=== PATIENT | female | born 1975 | race Caucasian/White ===

== ENCOUNTER 2016-05-04 19:22 | Emergency (ER) | payer MEDICAID ==
[~2016-05-04] VITALS: Ht 165.1 cm; Wt 101.0 kg
[~2016-05-04 19:22] MED LIST: ALBU18HF INH; ALPR0.25 PO; AMLO10TA2 PO; B-12 PO; DIVA250T6 PO; DIVA500T17 PO; DOCU-30 PO; HYDR-2440 PO; IMIP25TA3 PO; LORA10TA3 PO; MAGNESIUM PO; MELO-184 PO; MOME220A9 INH; MONT10TA6 PO; MONT10TA9 PO; NORE-96 PO; OMEP-110 PO; OXYC-302 PO; POTA20TA14 PO; RIVA20TA PO; SERT100T PO; SERT50TA PO; SPIR25TA3 PO; TRAZ100T15 PO; VENTOLIN PO; ZOLP-413 PO; ZOLP10TA PO; [UNRECOGNIZED DRUG - REMARK]
[2016-05-04] MEDS ORDERED: KETOROLAC 30 MG/1 ML IM ONE (20:00)
[2016-05-04] MEDS ORDERED: LORA10TA72 PO (20:02)
[2016-05-04] MEDS ORDERED: MONT4GRA PO (20:02)
[2016-05-04 20:24] LABS: HEMOGLOBIN 14.2 g/dL (11.7-16.4)
[2016-05-04 20:35] LABS: BLOOD UREA NITROGEN 8 mg/dL (7-18)
[2016-05-04 20:39] LABS: IS PT STATUS REG ER OR PRE ER? YES
[2016-05-04] MEDS ORDERED: KETOROLAC 30 MG/1 ML ONE (20:39)
[2016-05-04] MEDS ORDERED: KETOROLAC 30 MG/1 ML IVPush ONE (21:00)
[2016-05-04] MEDS ORDERED: OMNIPAQUE 350 MG/ML, 100ML BOTTLE ONE (21:21)
[2016-05-04 21:30] VITALS: BP 141/80
[2016-05-04] MEDS ORDERED: POTASSIUM CHLORIDE 20 MEQ TAB.ER.PRT PO ONE (22:00)
[2016-05-04] MEDS ORDERED: POTASSIUM CHLORIDE 20 MEQ TAB.ER.PRT ONE (22:15)
[2016-05-04] MEDS ORDERED: OXYcodone/APAP 10/325MG TABLET ONE (22:17)
[2016-05-04] MEDS ORDERED: OXYcodone/APAP 10/325MG TABLET PO ONE (22:30)
== END 2016-05-04 22:24 | disposition home or self-care (01) ==
LOC: ED 22:10
DX: R07.1 Chest pain on breathing (principal); F41.1 Generalized anxiety disorder; G43.909 Migraine, unspecified, not intractable, without status migrainosus; F32.9 Major depressive disorder, single episode, unspecified; F43.10 Post-traumatic stress disorder, unspecified; I10 Essential (primary) hypertension; Z90.710 Acquired absence of both cervix and uterus; Z98.51 Tubal ligation status
CPT/HCPCS: 36415; 71275; 80048; 82040; 83880; 84484; 85025; 93005; 96374; 99285; J1885; Q9967

== ENCOUNTER 2016-08-20 20:54 | Emergency (ER) | payer MEDICAID ==
[~2016-08-20] VITALS: Ht 165.1 cm; Wt 105.2 kg
[~2016-08-20 20:54] MED LIST changes: +LORA10TA72 PO; +MONT4GRA PO
[2016-08-20 21:00] VITALS: BP 135/84
[2016-08-20] MEDS ORDERED: SPIR25TA3 PO (21:05)
[2016-08-20] MEDS ORDERED: KETOROLAC 30 MG/1 ML ONE (21:24)
[2016-08-20] MEDS ORDERED: KETOROLAC 30 MG/1 ML IM ONE (21:30)
== END 2016-08-20 22:11 | disposition home or self-care (01) ==
LOC: ED 22:05
DX: S83.92XA Sprain of unspecified site of left knee, initial encounter (principal); X50.9XXA Other and unspecified overexertion or strenuous movements or postures, initial encounter; Y93.89 Activity, other specified; Y99.8 Other external cause status; Y92.009 Unspecified place in unspecified non-institutional (private) residence as the place of occurrence of the external cause
CPT/HCPCS: 29505; 73564; 96372; 99284; J1885

== ENCOUNTER 2016-09-03 18:22 | Emergency (ER) | payer MEDICAID ==
[~2016-09-03] VITALS: Ht 165.1 cm; Wt 103.0 kg
[2016-09-03] MEDS ORDERED: KETOROLAC 30 MG/1 ML ONE (18:59)
[2016-09-03] MEDS ORDERED: METOCLOPRAMIDE 5 MG/ML, 2ML ONE (18:59)
[2016-09-03] MEDS ORDERED: DIPHENHYDRAMINE 50 MG/ML, 1ML IVPush ONE (19:00)
[2016-09-03] MEDS ORDERED: KETOROLAC 30 MG/1 ML IVPush ONE (19:00)
[2016-09-03] MEDS ORDERED: METOCLOPRAMIDE 5 MG/ML, 2ML IVPush ONE (19:00)
[2016-09-03] MEDS ORDERED: ONDANSETRON 2MG/ML, 2ML ONE (19:00)
[2016-09-03] MEDS ORDERED: DIPHENHYDRAMINE 50 MG/ML, 1ML ONE (19:00)
[2016-09-03] MEDS ORDERED: SODIUM CHLORIDE FLUSH 10ML SYR IVF ONE (19:00)
[2016-09-03] MEDS ORDERED: ONDANSETRON 2MG/ML, 2ML IVPush ONE (19:00)
[2016-09-03] MEDS ORDERED: SODIUM CHLORIDE 0.9% 1,000ML IVBOLUS ONE (19:00)
[2016-09-03] MEDS ORDERED: morphine SULFATE 10 MG/ML, 1ML IVPush PRN (20:00)
[2016-09-03 21:14] VITALS: BP 124/83
== END 2016-09-03 21:18 | disposition home or self-care (01) ==
LOC: ED 19:45
DX: G43.009 Migraine without aura, not intractable, without status migrainosus (principal); I10 Essential (primary) hypertension; E66.01 Morbid (severe) obesity due to excess calories; J45.909 Unspecified asthma, uncomplicated; Z87.891 Personal history of nicotine dependence; Z88.0 Allergy status to penicillin; Z90.710 Acquired absence of both cervix and uterus
CPT/HCPCS: 96361; 96374; 96375; 99284; J1200; J1885; J2405; J2765; J7030

== ENCOUNTER 2016-10-11 17:15 | Emergency (ER) | payer MEDICAID ==
[~2016-10-11] VITALS: Ht 165.1 cm; Wt 101.8 kg
[~2016-10-11 17:15] MED LIST changes: +DOCU-131 PO; -DOCU-30 PO; -MELO-184 PO; +MELO15TA24 PO
[2016-10-11] MEDS ORDERED: KETOROLAC 30 MG/1 ML ONE (18:26)
[2016-10-11] MEDS ORDERED: KETOROLAC 30 MG/1 ML IM ONE (18:30)
[2016-10-11 19:27] VITALS: BP 143/89
== END 2016-10-11 19:26 | disposition home or self-care (01) ==
LOC: ED 18:33
DX: G89.29 Other chronic pain (principal); M25.562 Pain in left knee; E66.01 Morbid (severe) obesity due to excess calories; Z68.37 Body mass index [BMI] 37.0-37.9, adult; I10 Essential (primary) hypertension; J45.909 Unspecified asthma, uncomplicated; Z85.828 Personal history of other malignant neoplasm of skin; Z87.891 Personal history of nicotine dependence; Z86.718 Personal history of other venous thrombosis and embolism
CPT/HCPCS: 73564; 96372; 99284; J1885

== ENCOUNTER 2017-01-03 18:56 | Emergency (ER) | payer MEDICAID ==
[~2017-01-03] VITALS: Ht 165.1 cm; Wt 104.0 kg
[2017-01-03] MEDS ORDERED: HYDROcodone/APAP 5/325 TABLET PO ONE (20:00)
[2017-01-03] MEDS ORDERED: HYDROcodone/APAP 5/325 TABLET ONE (20:08)
[2017-01-03 20:23] VITALS: BP 118/81
== END 2017-01-03 20:26 | disposition home or self-care (01) ==
LOC: ED 20:10
DX: S80.02XA Contusion of left knee, initial encounter (principal); S60.212A Contusion of left wrist, initial encounter; I10 Essential (primary) hypertension; F43.10 Post-traumatic stress disorder, unspecified; W18.30XA Fall on same level, unspecified, initial encounter; Y93.89 Activity, other specified; Y92.009 Unspecified place in unspecified non-institutional (private) residence as the place of occurrence of the external cause; Y99.8 Other external cause status
CPT/HCPCS: 99284

== ENCOUNTER 2017-03-03 10:52 | Emergency (ER) | payer MEDICAID ==
[~2017-03-03] VITALS: Ht 165.1 cm; Wt 104.4 kg
[2017-03-03] MEDS ORDERED: KETOROLAC 30 MG/1 ML IM ONE (11:30)
[2017-03-03] MEDS ORDERED: KETOROLAC 30 MG/1 ML ONE (11:45)
[2017-03-03 12:24] VITALS: BP 141/80
== END 2017-03-03 12:27 | disposition home or self-care (01) ==
LOC: ED 11:42
DX: M25.511 Pain in right shoulder (principal); G43.909 Migraine, unspecified, not intractable, without status migrainosus; I10 Essential (primary) hypertension; F32.9 Major depressive disorder, single episode, unspecified; F17.210 Nicotine dependence, cigarettes, uncomplicated; Z86.718 Personal history of other venous thrombosis and embolism
CPT/HCPCS: 73030; 96372; 99284; J1885

== ENCOUNTER 2017-04-22 09:03 | Emergency (ER) | payer MEDICAID ==
[~2017-04-22] VITALS: Ht 165.1 cm; Wt 100.0 kg
[2017-04-22] MEDS ORDERED: KETOROLAC 30 MG/1 ML ONE (09:27)
[2017-04-22] MEDS ORDERED: MAALOX/HYOSCYAMINE/LIDOCAINE 45 ML BTL ONE (09:27)
[2017-04-22] MEDS ORDERED: MAALOX/HYOSCYAMINE/LIDOCAINE 45 ML BTL PO ONE (09:30)
[2017-04-22] MEDS ORDERED: KETOROLAC 30 MG/1 ML IM ONE (09:30)
[2017-04-22 09:40] LABS: ALANINE AMINOTRANSFERASE 17 U/L (12-78); ANION GAP 10 mmol/L (5-15); CALCIUM 7.8 mg/dL (8.5-10.1); CHLORIDE 109 mmol/L (98-107); CREATININE 0.68 mg/dL (0.55-1.02)
[2017-04-22 09:45] LABS: ALKALINE PHOSPHATASE 77 U/L (45-117); BILIRUBIN,TOTAL 0.7 mg/dL (0.2-1.0); TOTAL PROTEIN 6.1 g/dL (6.4-8.2); TROPONIN I < 0.015 ng/mL (0.000-0.045)
[2017-04-22 09:48] LABS: BASOPHILS # (AUTO) 0.02 x10^3/uL (0-0.1); BASOPHILS % (AUTO) 0 % (0-1); EOSINOPHILS # (AUTO) 0.05 x10^3/uL (0-0.4); EOSINOPHILS % (AUTO) 1 % (1-7); LYMPHOCYTES # (AUTO) 1.83 x10^3/uL (1-3.4); LYMPHOCYTES % (AUTO) 33 % (22-44); MD NO; MEAN CORPUSCULAR HEMOGLOBIN 27.9 pg (27.0-34.8); MEAN CORPUSCULAR HGB CONC 33.1 g/dL (32.4-35.8); MEAN CORPUSCULAR VOLUME 84.2 fL (80-100); MEAN PLATELET VOLUME 8.7 fL (7.4-10.4); MONOCYTES # (AUTO) 0.32 x10^3/uL (0.2-0.8); MONOCYTES % (AUTO) 6 % (2-9); NEUTROPHILS % (AUTO) 61 % (42-75); PLATELET COUNT 363 x10^3/uL (130-400); RED BLOOD COUNT 4.92 x10^6/uL (3.82-5.3); RED CELL DISTRIBUTION WIDTH 13.4 % (9.6-15.2)
[2017-04-22 10:09] VITALS: BP 136/85
== END 2017-04-22 10:11 | disposition home or self-care (01) ==
LOC: ED 09:27
DX: R07.2 Precordial pain (principal); I10 Essential (primary) hypertension; G43.909 Migraine, unspecified, not intractable, without status migrainosus; Z87.891 Personal history of nicotine dependence; E66.01 Morbid (severe) obesity due to excess calories
CPT/HCPCS: 36415; 71045; 80053; 83880; 84484; 85025; 93005; 96372; 99285; J1885

== ENCOUNTER 2017-05-08 19:33 | Emergency (ER) | payer MEDICAID ==
[~2017-05-08] VITALS: Ht 165.1 cm; Wt 99.0 kg
[2017-05-08 20:15] LABS: BASOPHILS # (AUTO) 0.04 x10^3/uL (0-0.1); BASOPHILS % (AUTO) 1 % (0-1); EOSINOPHILS # (AUTO) 0.06 x10^3/uL (0-0.4); EOSINOPHILS % (AUTO) 1 % (1-7); LYMPHOCYTES # (AUTO) 2.41 x10^3/uL (1-3.4); LYMPHOCYTES % (AUTO) 33 % (22-44); MD NO; MEAN CORPUSCULAR HEMOGLOBIN 28.3 pg (27.0-34.8); MEAN CORPUSCULAR HGB CONC 33.8 g/dL (32.4-35.8); MEAN CORPUSCULAR VOLUME 83.7 fL (80-100); MEAN PLATELET VOLUME 8.1 fL (7.4-10.4); MONOCYTES % (AUTO) 5 % (2-9); NEUTROPHILS # (AUTO) 4.42 x10^3/uL (1.8-6.8); NEUTROPHILS % (AUTO) 60 % (42-75); PLATELET COUNT 365 x10^3/uL (130-400); RED BLOOD COUNT 5.02 x10^6/uL (3.82-5.3); RED CELL DISTRIBUTION WIDTH 13.8 % (9.6-15.2)
[2017-05-08 20:24] LABS: ALBUMIN 3.2 g/dL (3.4-5.0); ANION GAP 6 mmol/L (5-15); CALCIUM 8.1 mg/dL (8.5-10.1); CHLORIDE 108 mmol/L (98-107); CREATININE 1.04 mg/dL (0.55-1.02)
[2017-05-08 20:28] LABS: TROPONIN I < 0.015 ng/mL (0.000-0.045)
[2017-05-08] MEDS ORDERED: KETOROLAC 30 MG/1 ML ONE (21:05)
[2017-05-08] MEDS ORDERED: KETOROLAC 30 MG/1 ML IVPush ONE (21:30)
[2017-05-08 22:31] VITALS: BP 165/86
== END 2017-05-08 22:33 | disposition home or self-care (01) ==
LOC: ED 21:49
DX: M94.0 Chondrocostal junction syndrome [Tietze] (principal); I10 Essential (primary) hypertension; E66.01 Morbid (severe) obesity due to excess calories; Z88.0 Allergy status to penicillin; M10.9 Gout, unspecified; F43.10 Post-traumatic stress disorder, unspecified; J45.909 Unspecified asthma, uncomplicated; Z86.718 Personal history of other venous thrombosis and embolism; Z85.828 Personal history of other malignant neoplasm of skin
CPT/HCPCS: 36415; 71045; 80048; 82040; 84484; 85025; 93005; 96374; 99285; J1885

== ENCOUNTER 2017-06-02 11:45 | Emergency (ER) | payer MEDICAID ==
[~2017-06-02] VITALS: Ht 165.1 cm; Wt 101.5 kg
[2017-06-02] MEDS ORDERED: OXYcodone/APAP 10/325MG TABLET PO ONE (12:30)
[2017-06-02] MEDS ORDERED: OXYcodone/APAP 10/325MG TABLET ONE (12:50)
[2017-06-02 13:09] VITALS: BP 139/88
== END 2017-06-02 14:56 | disposition home or self-care (01) ==
LOC: ED 13:34
DX: S60.212A Contusion of left wrist, initial encounter (principal); S80.02XA Contusion of left knee, initial encounter; F43.10 Post-traumatic stress disorder, unspecified; I10 Essential (primary) hypertension; J45.909 Unspecified asthma, uncomplicated; E66.01 Morbid (severe) obesity due to excess calories; G43.909 Migraine, unspecified, not intractable, without status migrainosus; W01.0XXA Fall on same level from slipping, tripping and stumbling without subsequent striking against object, initial encounter; Y93.89 Activity, other specified; Y92.89 Other specified places as the place of occurrence of the external cause; Y99.8 Other external cause status; Z90.710 Acquired absence of both cervix and uterus; Z86.718 Personal history of other venous thrombosis and embolism; Z85.828 Personal history of other malignant neoplasm of skin; Z68.37 Body mass index [BMI] 37.0-37.9, adult; Z98.51 Tubal ligation status
CPT/HCPCS: 29260; 29505; 99284

== ENCOUNTER 2017-07-25 21:16 | Emergency (ER) | payer MEDICAID ==
[~2017-07-25] VITALS: Ht 165.1 cm; Wt 100.0 kg
[2017-07-25 21:58] LABS: BASOPHILS # (AUTO) 0.03 x10^3/uL (0-0.1); BASOPHILS % (AUTO) 1 % (0-1); EOSINOPHILS # (AUTO) 0.14 x10^3/uL (0-0.4); EOSINOPHILS % (AUTO) 2 % (1-7); LYMPHOCYTES # (AUTO) 2.19 x10^3/uL (1-3.4); LYMPHOCYTES % (AUTO) 33 % (22-44); MD NO; MEAN CORPUSCULAR HGB CONC 34.3 g/dL (32.4-35.8); MEAN CORPUSCULAR VOLUME 84.7 fL (80-100); MONOCYTES # (AUTO) 0.42 x10^3/uL (0.2-0.8); MONOCYTES % (AUTO) 6 % (2-9); NEUTROPHILS # (AUTO) 3.86 x10^3/uL (1.8-6.8); NEUTROPHILS % (AUTO) 58 % (42-75); PLATELET COUNT 385 x10^3/uL (130-400); RED BLOOD COUNT 4.68 x10^6/uL (3.82-5.3)
[2017-07-25] MEDS ORDERED: DIPHENHYDRAMINE 50 MG/ML, 1ML ONE (21:59)
[2017-07-25] MEDS ORDERED: MAALOX/HYOSCYAMINE/LIDOCAINE 45 ML BTL ONE (21:59)
[2017-07-25] MEDS ORDERED: FAMOTIDINE 20 MG/2 ML ONE (21:59)
[2017-07-25] MEDS ORDERED: METOCLOPRAMIDE 5 MG/ML, 2ML ONE (21:59)
[2017-07-25] MEDS ORDERED: MORPHINE SULFATE 4 MG/ML, 1ML IVPush PRN (22:00)
[2017-07-25] MEDS ORDERED: FAMOTIDINE 20 MG/2 ML IVP ONE (22:00)
[2017-07-25] MEDS ORDERED: METOCLOPRAMIDE 5 MG/ML, 2ML IVPush ONE (22:00)
[2017-07-25] MEDS ORDERED: SODIUM CHLORIDE FLUSH 10ML SYR IVF ONE (22:00)
[2017-07-25] MEDS ORDERED: MAALOX/HYOSCYAMINE/LIDOCAINE 45 ML BTL PO ONE (22:00)
[2017-07-25] MEDS ORDERED: DIPHENHYDRAMINE 50 MG/ML, 1ML IVPush ONE (22:00)
[2017-07-25] MEDS ORDERED: SODIUM CHLORIDE 0.9% 1,000ML IVBOLUS ONE (22:00)
[2017-07-25 22:10] LABS: ALANINE AMINOTRANSFERASE 30 U/L (12-78); ANION GAP 8 mmol/L (5-15); CALCIUM 8.2 mg/dL (8.5-10.1); CHLORIDE 107 mmol/L (98-107); CREATININE 0.79 mg/dL (0.55-1.02)
[2017-07-25 22:14] LABS: ALKALINE PHOSPHATASE 79 U/L (45-117); BILIRUBIN,TOTAL 0.2 mg/dL (0.2-1.0); TOTAL PROTEIN 6.4 g/dL (6.4-8.2)
[2017-07-25 22:46] LABS: MICROSCOPIC NOT IND
[2017-07-25 22:49] LABS: CULTURE INDICATED? NO
[2017-07-25 22:57] VITALS: BP 160/80
== END 2017-07-26 00:03 | disposition home or self-care (01) ==
LOC: ED 23:03
DX: R10.13 Epigastric pain (principal); R19.7 Diarrhea, unspecified; R11.10 Vomiting, unspecified; I10 Essential (primary) hypertension; Z87.891 Personal history of nicotine dependence
CPT/HCPCS: 36415; 76700; 80053; 81003; 83690; 84703; 85025; 96361; 96374; 96375; 99285; J1200; J2765; J7030; S0028

== ENCOUNTER 2017-09-11 19:58 | Emergency (ER) | payer MEDICAID ==
[~2017-09-11] VITALS: Ht 167.6 cm; Wt 100.0 kg
[~2017-09-11 19:58] MED LIST changes: +DIVA-59 PO; -DIVA250T6 PO; -SPIR25TA3 PO; +SPIR25TA5 PO; +TRAZ-137 PO; -TRAZ100T15 PO
[2017-09-11 20:08] VITALS: BP 145/86
[2017-09-11] MEDS ORDERED: ASPIRIN 81 MG TABLET CHEW PO ONE (20:30)
[2017-09-11] MEDS ORDERED: KETOROLAC 30 MG/1 ML ONE (20:30)
[2017-09-11] MEDS ORDERED: KETOROLAC 60 MG/2 ML IVPush ONE (20:30)
[2017-09-11] MEDS ORDERED: ASPIRIN 81 MG TABLET CHEW ONE (20:30)
[2017-09-11 20:54] LABS: BASOPHILS # (AUTO) 0.02 x10^3/uL (0-0.1); BASOPHILS % (AUTO) 0 % (0-1); EOSINOPHILS % (AUTO) 1 % (1-7); LYMPHOCYTES # (AUTO) 2.46 x10^3/uL (1-3.4); LYMPHOCYTES % (AUTO) 26 % (22-44); MD NO; MEAN CORPUSCULAR HGB CONC 33.4 g/dL (32.4-35.8); MEAN CORPUSCULAR VOLUME 86.7 fL (80-100); MEAN PLATELET VOLUME 8.5 fL (7.4-10.4); MONOCYTES # (AUTO) 0.48 x10^3/uL (0.2-0.8); MONOCYTES % (AUTO) 5 % (2-9); NEUTROPHILS % (AUTO) 67 % (42-75); PLATELET COUNT 342 x10^3/uL (130-400); RED BLOOD COUNT 4.63 x10^6/uL (3.82-5.3); RED CELL DISTRIBUTION WIDTH 12.6 % (9.6-15.2)
[2017-09-11 21:03] LABS: ALANINE AMINOTRANSFERASE 44 U/L (12-78); ALBUMIN 3.3 g/dL (3.4-5.0); ANION GAP 10 mmol/L (5-15); CALCIUM 8.3 mg/dL (8.5-10.1); CHLORIDE 107 mmol/L (98-107); CREATININE 0.87 mg/dL (0.55-1.02)
[2017-09-11 21:08] LABS: ALKALINE PHOSPHATASE 86 U/L (45-117); BILIRUBIN,TOTAL 0.3 mg/dL (0.2-1.0); TOTAL PROTEIN 6.8 g/dL (6.4-8.2); TROPONIN I < 0.015 ng/mL (0.000-0.045)
[2017-09-11] MEDS ORDERED: ACETAMINOPHEN 500 MG TABLET ONE (21:39)
[2017-09-11] MEDS ORDERED: ACETAMINOPHEN 500 MG TABLET PO ONE (22:00)
== END 2017-09-11 22:38 | disposition home or self-care (01) ==
LOC: ED 21:16
DX: R07.89 Other chest pain (principal); M94.0 Chondrocostal junction syndrome [Tietze]; J45.909 Unspecified asthma, uncomplicated; Z87.891 Personal history of nicotine dependence
CPT/HCPCS: 36415; 71046; 80053; 84484; 84703; 85025; 93005; 96374; 99285; J1885

== ENCOUNTER 2017-12-02 18:53 | Emergency (ER) | payer MEDICAID ==
[~2017-12-02] VITALS: Ht 165.1 cm; Wt 100.0 kg
[~2017-12-02 18:53] MED LIST changes: -AMLO10TA2 PO; +AMLO10TA6 PO
[2017-12-02] MEDS ORDERED: SODIUM CHLORIDE 0.9% 1,000 ML IV ONE (19:13)
[2017-12-02] MEDS ORDERED: ONDANSETRON 2MG/ML, 2ML ONE (19:23)
[2017-12-02] MEDS ORDERED: HYDROmorphone 2 MG/ML, 1ML ONE (19:24)
[2017-12-02] MEDS ORDERED: SODIUM CHLORIDE 0.9% 1,000ML IVBOLUS ONE (19:30)
[2017-12-02] MEDS ORDERED: SODIUM CHLORIDE FLUSH 10ML SYR IVF ONE (19:30)
[2017-12-02] MEDS ORDERED: ONDANSETRON 2MG/ML, 2ML IVPush ONE (19:30)
[2017-12-02] MEDS ORDERED: HYDROmorphone 2 MG/ML, 1ML IVPush PRN (19:30)
[2017-12-02 19:37] LABS: BASOPHILS # (AUTO) 0.02 x10^3/uL (0-0.1); BASOPHILS % (AUTO) 0 % (0-1); EOSINOPHILS # (AUTO) 0.06 x10^3/uL (0-0.4); EOSINOPHILS % (AUTO) 1 % (1-7); LYMPHOCYTES % (AUTO) 21 % (22-44); MD NO; MEAN CORPUSCULAR HEMOGLOBIN 28.8 pg (27.0-34.8); MEAN CORPUSCULAR HGB CONC 33.7 g/dL (32.4-35.8); MEAN CORPUSCULAR VOLUME 85.3 fL (80-100); MEAN PLATELET VOLUME 8.2 fL (7.4-10.4); MONOCYTES # (AUTO) 0.43 x10^3/uL (0.2-0.8); MONOCYTES % (AUTO) 8 % (2-9); NEUTROPHILS # (AUTO) 3.75 x10^3/uL (1.8-6.8); NEUTROPHILS % (AUTO) 70 % (42-75); PLATELET COUNT 390 x10^3/uL (130-400); RED BLOOD COUNT 5.18 x10^6/uL (3.82-5.3); RED CELL DISTRIBUTION WIDTH 12.2 % (9.6-15.2)
[2017-12-02 19:44] LABS: ALBUMIN 3.4 g/dL (3.4-5.0); ANION GAP 8 mmol/L (5-15); CALCIUM 8.5 mg/dL (8.5-10.1); CHLORIDE 109 mmol/L (98-107); PROTHROMBIN TIME 10.3 Seconds (9.6-11.5)
[2017-12-02 19:49] LABS: ALANINE AMINOTRANSFERASE 43 U/L (12-78); ALKALINE PHOSPHATASE 104 U/L (45-117); BILIRUBIN,TOTAL 0.5 mg/dL (0.2-1.0); CREATININE 0.85 mg/dL (0.55-1.02); TOTAL PROTEIN 7.4 g/dL (6.4-8.2); TROPONIN I < 0.015 ng/mL (0.000-0.045)
[2017-12-02] MEDS ORDERED: OMNIPAQUE 350 MG/ML, 100ML BOTTLE ONE (20:31)
[2017-12-02 21:16] VITALS: BP 122/80
== END 2017-12-02 21:22 | disposition home or self-care (01) ==
LOC: ED 20:29
DX: R07.89 Other chest pain (principal); I10 Essential (primary) hypertension; G43.909 Migraine, unspecified, not intractable, without status migrainosus; J45.909 Unspecified asthma, uncomplicated; Z88.0 Allergy status to penicillin
CPT/HCPCS: 36415; 71046; 71275; 80053; 83880; 84484; 85025; 85610; 85730; 93005; 96361; 96374; 96375; 99285; J1170; J2405; J7030; Q9967

== ENCOUNTER 2018-02-17 13:44 | Emergency (ER) | payer SELFPAY ==
[~2018-02-17] VITALS: Ht 167.6 cm; Wt 100.0 kg
--- NOTE | 2018-02-17 14:08 | NUR ---
BIB [facility]. C/O CP across chest starting at 1300. EKG done. Placed on NIBP, pulse ox and monitoring tech. Family at bedside. Will continue to monitor.
[2018-02-17] MEDS ORDERED: KETOROLAC 30 MG/1 ML ONE (14:13)
--- NOTE | 2018-02-17 14:19 | NUR ---
Toradol admin. No other needs.
[2018-02-17] MEDS ORDERED: KETOROLAC 30 MG/1 ML IVPush ONE (14:30)
[2018-02-17 15:24] VITALS: BP 128/81
--- NOTE | 2018-02-17 15:24 | NUR ---
Patient/Caregiver given discharge instructions and they have confirmed that they understand the instructions. Patient ambulatory with steady gait.
== END 2018-02-17 15:26 | disposition home or self-care (01) ==
LOC: ED 15:25
DX: R07.89 Other chest pain (principal); I10 Essential (primary) hypertension; F41.1 Generalized anxiety disorder; F32.9 Major depressive disorder, single episode, unspecified; J45.909 Unspecified asthma, uncomplicated; F43.10 Post-traumatic stress disorder, unspecified; E66.01 Morbid (severe) obesity due to excess calories; Z88.0 Allergy status to penicillin; Z88.5 Allergy status to narcotic agent; Z68.35 Body mass index [BMI] 35.0-35.9, adult; Z98.890 Other specified postprocedural states; Z90.710 Acquired absence of both cervix and uterus; Z98.51 Tubal ligation status
CPT/HCPCS: 71046; 93005; 96374; 99283; J1885

== ENCOUNTER 2018-03-28 20:49 | Emergency (ER) | payer MEDICAID ==
[~2018-03-28] VITALS: Ht 165.1 cm; Wt 103.0 kg
[~2018-03-28 20:49] MED LIST changes: -AMLO10TA6 PO; +AMLO10TA8 PO; +LORA-247 PO; -LORA10TA3 PO
[2018-03-28] MEDS ORDERED: TRAM50TA2 PO (20:58)
[2018-03-28] MEDS ORDERED: KETOROLAC 30 MG/1 ML IVPush ONE (21:30)
[2018-03-28] MEDS ORDERED: KETOROLAC 30 MG/1 ML ONE (21:35)
[2018-03-28 21:41] LABS: BASOPHILS # (AUTO) 0.02 x10^3/uL (0-0.1); BASOPHILS % (AUTO) 0 % (0-1); EOSINOPHILS # (AUTO) 0.13 x10^3/uL (0-0.4); EOSINOPHILS % (AUTO) 2 % (1-7); LYMPHOCYTES # (AUTO) 2.25 x10^3/uL (1-3.4); LYMPHOCYTES % (AUTO) 29 % (22-44); MD NO; MEAN CORPUSCULAR HEMOGLOBIN 28.6 pg (27.0-34.8); MEAN CORPUSCULAR HGB CONC 33.7 g/dL (32.4-35.8); MEAN CORPUSCULAR VOLUME 84.9 fL (80-100); MEAN PLATELET VOLUME 7.9 fL (7.4-10.4); MONOCYTES # (AUTO) 0.38 x10^3/uL (0.2-0.8); MONOCYTES % (AUTO) 5 % (2-9); NEUTROPHILS # (AUTO) 4.88 x10^3/uL (1.8-6.8); NEUTROPHILS % (AUTO) 64 % (42-75); PLATELET COUNT 421 x10^3/uL (130-400); RED BLOOD COUNT 4.67 x10^6/uL (3.82-5.3)
--- NOTE | 2018-03-28 21:41 | NUR ---
PT RESTING ON GURNEY WATCHING TV. AT BEDSIDE. PT MEDICATED PER EMAR AND PT AWARE PA IS AWAITING RESULTS. VSS AND WILL CONT TO MONITOR.
[2018-03-28 21:54] LABS: ALANINE AMINOTRANSFERASE 23 U/L (12-78); ALBUMIN 3.2 g/dL (3.4-5.0); ANION GAP 7 mmol/L (5-15); CHLORIDE 108 mmol/L (98-107); CREATININE 1.08 mg/dL (0.55-1.02)
[2018-03-28 21:59] LABS: ALKALINE PHOSPHATASE 95 U/L (45-117); BILIRUBIN,TOTAL 0.5 mg/dL (0.2-1.0); TROPONIN I < 0.015 ng/mL (0.000-0.045)
[2018-03-29 00:10] VITALS: BP 120/75
== END 2018-03-29 00:13 | disposition home or self-care (01) ==
LOC: ED 23:55
DX: R07.89 Other chest pain (principal); J45.909 Unspecified asthma, uncomplicated; G43.909 Migraine, unspecified, not intractable, without status migrainosus; I10 Essential (primary) hypertension
CPT/HCPCS: 36415; 71045; 80053; 84484; 85025; 93005; 96374; 99284; J1885

== ENCOUNTER 2018-04-07 20:12 | Emergency (ER) | payer MEDICAID ==
[~2018-04-07] VITALS: Ht 165.1 cm; Wt 102.0 kg
[~2018-04-07 20:12] MED LIST changes: +TRAM50TA2 PO
[2018-04-07] MEDS ORDERED: KETOROLAC 30 MG/1 ML ONE (20:29)
[2018-04-07] MEDS ORDERED: KETOROLAC 30 MG/1 ML IM ONE (20:30)
--- NOTE | 2018-04-07 20:35 | NUR ---
Bedside SBAR report received from Alisa childs RN. EDT at bedside for EKG.
--- NOTE | 2018-04-07 20:42 | NUR ---
EKG complete. Pt in imaging at this time.
[2018-04-07 21:14] LABS: BASOPHILS # (AUTO) 0.03 x10^3/uL (0-0.1); BASOPHILS % (AUTO) 0 % (0-1); EOSINOPHILS # (AUTO) 0.08 x10^3/uL (0-0.4); EOSINOPHILS % (AUTO) 1 % (1-7); LYMPHOCYTES # (AUTO) 1.86 x10^3/uL (1-3.4); LYMPHOCYTES % (AUTO) 26 % (22-44); MD NO; MEAN CORPUSCULAR HEMOGLOBIN 28.5 pg (27.0-34.8); MEAN CORPUSCULAR VOLUME 83.8 fL (80-100); MEAN PLATELET VOLUME 8.4 fL (7.4-10.4); MONOCYTES % (AUTO) 6 % (2-9); NEUTROPHILS # (AUTO) 4.85 x10^3/uL (1.8-6.8); NEUTROPHILS % (AUTO) 67 % (42-75); PLATELET COUNT 330 x10^3/uL (130-400); RED BLOOD COUNT 4.68 x10^6/uL (3.82-5.3); RED CELL DISTRIBUTION WIDTH 12.9 % (9.6-15.2)
[2018-04-07 21:17] LABS: ALANINE AMINOTRANSFERASE 33 U/L (12-78); ALBUMIN 3.2 g/dL (3.4-5.0); ANION GAP 5 mmol/L (5-15); CALCIUM 8.1 mg/dL (8.5-10.1); CHLORIDE 106 mmol/L (98-107); CREATININE 0.86 mg/dL (0.55-1.02)
[2018-04-07 21:21] LABS: ALKALINE PHOSPHATASE 90 U/L (45-117); BILIRUBIN,TOTAL 0.5 mg/dL (0.2-1.0); TOTAL PROTEIN 6.5 g/dL (6.4-8.2); TROPONIN I < 0.015 ng/mL (0.000-0.045)
[2018-04-07] MEDS ORDERED: DEXAMETHASONE 4 MG TABLET PO ONE (21:30)
[2018-04-07] MEDS ORDERED: DEXAMETHASONE 4 MG TABLET ONE (21:38)
--- NOTE | 2018-04-07 21:40 | NUR ---
RN in to medicate pt, per APR. Medication explained to pt and pt states that she has a little bit of a sore throat because she was just sleeping. Pt then asked if her pain is better as she was sleeping, pt states "No, it's still there."
--- NOTE | 2018-04-07 21:42 | NUR ---
Pt medicated per MAR.
[2018-04-07 21:43] VITALS: BP 137/78
== END 2018-04-07 22:22 | disposition home or self-care (01) ==
LOC: ED 21:55
DX: M94.0 Chondrocostal junction syndrome [Tietze] (principal); I10 Essential (primary) hypertension
CPT/HCPCS: 36415; 71046; 80053; 84484; 85025; 93005; 96372; 99284; J1885

== ENCOUNTER 2018-04-08 15:55 | Emergency (ER) | payer MEDICAID ==
[~2018-04-08] VITALS: Ht 165.1 cm; Wt 100.0 kg
[2018-04-08] MEDS ORDERED: KETOROLAC 30 MG/1 ML IVPush ONE (17:00)
[2018-04-08] MEDS ORDERED: KETOROLAC 30 MG/1 ML ONE (17:08)
[2018-04-08 17:16] LABS: MEAN CORPUSCULAR HEMOGLOBIN 28.4 pg (27.0-34.8); MEAN CORPUSCULAR HGB CONC 33.3 g/dL (32.4-35.8); MEAN CORPUSCULAR VOLUME 85.5 fL (80-100); MEAN PLATELET VOLUME 8.2 fL (7.4-10.4); PLATELET COUNT 397 x10^3/uL (130-400); RED BLOOD COUNT 4.77 x10^6/uL (3.82-5.3); RED CELL DISTRIBUTION WIDTH 13.1 % (9.6-15.2)
--- NOTE | 2018-04-08 17:17 | NUR ---
REPORT OF PT FROM EVERT HENRY. PT ATTACHED TO VS MACHINES AND FINISH MILL OPERATOR. VSS AT THIS TIME. PT MEDICATED FOR PAIN PER EMAR.
[2018-04-08 17:22] LABS: ANION GAP 8 mmol/L (5-15); CALCIUM 8.3 mg/dL (8.5-10.1); CHLORIDE 111 mmol/L (98-107); CREATININE 0.83 mg/dL (0.55-1.02)
[2018-04-08 17:26] LABS: TROPONIN I < 0.015 ng/mL (0.000-0.045)
[2018-04-08 17:42] LABS: BASOPHILS # (AUTO) 0.03 x10^3/uL (0-0.1); BASOPHILS % (AUTO) 0 % (0-1); EOSINOPHILS % (AUTO) 0 % (1-7); LYMPHOCYTES # (AUTO) 1.19 x10^3/uL (1-3.4); LYMPHOCYTES % (AUTO) 7 % (22-44); MD SCAN; MONOCYTES # (AUTO) 0.58 x10^3/uL (0.2-0.8); MONOCYTES % (AUTO) 4 % (2-9); NEUTROPHILS # (AUTO) 14.75 x10^3/uL (1.8-6.8); NEUTROPHILS % (AUTO) 89 % (42-75)
[2018-04-08] MEDS ORDERED: HYDROcodone/APAP 5/325 TABLET PO STA (18:03)
[2018-04-08] MEDS ORDERED: HYDROcodone/APAP 5/325 TABLET ONE (18:47)
--- NOTE | 2018-04-08 19:06 | NUR ---
PT D/C WITH D/C SUMMARY AND SCRIPTS. IV DC WITH TIP INTACT. PT DENIES ANY OTHER NEEDS PERTAINING TO THIS VISIT. PT AMBULATED WITH STEADY GAIT TO D/C DESK FOR D/C HOME WITH FRIEND.
[2018-04-08 19:07] VITALS: BP 134/77
== END 2018-04-08 19:09 | disposition home or self-care (01) ==
LOC: ED 16:12
DX: R07.2 Precordial pain (principal); I10 Essential (primary) hypertension; F32.9 Major depressive disorder, single episode, unspecified; J45.909 Unspecified asthma, uncomplicated; Z98.890 Other specified postprocedural states; Z90.710 Acquired absence of both cervix and uterus; Z98.51 Tubal ligation status; Z86.718 Personal history of other venous thrombosis and embolism
CPT/HCPCS: 36415; 80048; 82040; 84484; 85025; 93005; 96374; 99284; J1885

== ENCOUNTER 2018-05-03 21:00 | Emergency (ER) | payer MEDICAID ==
[~2018-05-03] VITALS: Ht 165.1 cm; Wt 100.0 kg
[2018-05-03 21:03] VITALS: BP 144/87
[2018-05-03] MEDS ORDERED: KETOROLAC 30 MG/1 ML IM ONE (21:30)
[2018-05-03] MEDS ORDERED: KETOROLAC 30 MG/1 ML ONE (21:40)
--- NOTE | 2018-05-03 22:10 | NUR ---
ELISABETH RN, PT MEDICATED BY PRIMARY RN, PT STATES STILL IN PAIN, WILL ALERT , EDUCATED PT THAT MED WILL TAKE A BIT TO KICK IN AND WILL CHECK BACK WITH HER. CALL LIGHT IN BED. SIDE RAILS UP.
--- NOTE | 2018-05-03 22:50 | NUR ---
Patient/Caregiver given discharge instructions and they have confirmed that they understand the instructions. Patient ambulatory with steady gait.
== END 2018-05-03 23:09 | disposition home or self-care (01) ==
LOC: ED 22:04
DX: M94.0 Chondrocostal junction syndrome [Tietze] (principal); I10 Essential (primary) hypertension; F41.1 Generalized anxiety disorder; J45.909 Unspecified asthma, uncomplicated; F32.9 Major depressive disorder, single episode, unspecified; E66.9 Obesity, unspecified; Z68.36 Body mass index [BMI] 36.0-36.9, adult; Z86.718 Personal history of other venous thrombosis and embolism
CPT/HCPCS: 96372; 99283; J1885; J7512

== ENCOUNTER 2018-05-16 17:46 | Emergency (ER) | payer MEDICAID ==
[~2018-05-16] VITALS: Ht 165.1 cm; Wt 225.0 kg
[2018-05-16] MEDS ORDERED: ACETAMINOPHEN 500 MG TABLET ONE (18:24)
[2018-05-16] MEDS ORDERED: KETOROLAC 30 MG/1 ML ONE (18:24)
[2018-05-16] MEDS ORDERED: KETOROLAC 30 MG/1 ML IVPush ONE (18:30)
[2018-05-16] MEDS ORDERED: ACETAMINOPHEN 500 MG TABLET PO ONE (18:30)
--- NOTE | 2018-05-16 18:40 | NUR ---
PT MEDICATED PER APR. 5 RIGHTS VERIFIED PRIOR. 3 P'S ADDRESSED.
[2018-05-16] MEDS ORDERED: HYDROmorphone 1 MG/ML, 1ML VIAL ONE (19:18)
--- NOTE | 2018-05-16 19:22 | NUR ---
PT MEDICATED FOR INCREASED PAIN. POC UPDATED. PT TO BE D/C.
[2018-05-16] MEDS ORDERED: HYDROmorphone 1 MG/ML, 1ML AMP IV ONE (19:30)
--- NOTE | 2018-05-16 19:30 | NUR ---
PT MEDICATED PER APR. 5 RIGHTS VERIFIED PRIOR. 3 P'S ADDRESSED.
[2018-05-16 19:35] VITALS: BP 123/78
--- NOTE | 2018-05-16 20:05 | NUR ---
PT STATES IMPROVED PAIN. PT GIVEN D/C PAPERWORK. PT VERBALIZED UNDERSTANDING. PT AMBULATED OUT OF DEPARTMENT WITH STEADY GAIT.
== END 2018-05-16 20:11 | disposition home or self-care (01) ==
LOC: ED 19:54
DX: R07.89 Other chest pain (principal); I10 Essential (primary) hypertension; G43.909 Migraine, unspecified, not intractable, without status migrainosus; J45.909 Unspecified asthma, uncomplicated; E66.01 Morbid (severe) obesity due to excess calories; Z68.45 Body mass index [BMI] 70 or greater, adult; Z87.891 Personal history of nicotine dependence; Z88.0 Allergy status to penicillin
CPT/HCPCS: 71045; 93005; 96374; 96375; 99283; J1170; J1885

== ENCOUNTER 2018-05-26 20:04 | Emergency (ER) | payer MEDICAID ==
[~2018-05-26] VITALS: Ht 165.1 cm; Wt 102.0 kg
[2018-05-26] MEDS ORDERED: CELE50CA PO (20:24)
--- NOTE | 2018-05-26 20:27 | NUR ---
PT CRYING STATES "I HAVE AUTOIMMUNE DISEASE AND MY MEDICATIONS ARE NOT WORKING. TAKES TRAMADOL AND CELEBREX." PHYSICIAN AT BEDSIDE.
[2018-05-26] MEDS ORDERED: LORazepam 2 MG/ML, 1ML IVPush ONE (20:30)
[2018-05-26] MEDS ORDERED: LORazepam 2 MG/ML, 1ML ONE (20:35)
[2018-05-26] MEDS ORDERED: KETOROLAC 30 MG/1 ML ONE (21:16)
[2018-05-26] MEDS ORDERED: KETOROLAC 30 MG/1 ML IVPush ONE (21:30)
--- NOTE | 2018-05-26 22:07 | NUR ---
PT STATES "PAIN IS BACK BAD IT WAS WHEN I CALLED [facility]." PHYSICIAN NOTIFIED.
[2018-05-26] MEDS ORDERED: ZIPRASIDONE 20 MG INJ IM ONE ×2 (22:20→22:30)
[2018-05-26 23:02] VITALS: BP 143/72
== END 2018-05-26 23:05 | disposition home or self-care (01) ==
LOC: ED 20:35
DX: R07.89 Other chest pain (principal); I10 Essential (primary) hypertension; F41.1 Generalized anxiety disorder; F32.9 Major depressive disorder, single episode, unspecified; F43.10 Post-traumatic stress disorder, unspecified; M10.9 Gout, unspecified; J45.909 Unspecified asthma, uncomplicated; Z86.718 Personal history of other venous thrombosis and embolism; Z87.891 Personal history of nicotine dependence; Z90.721 Acquired absence of ovaries, unilateral; Z85.828 Personal history of other malignant neoplasm of skin
CPT/HCPCS: 93005; 96372; 96374; 96375; 99283; J1885; J2060; J3486

== ENCOUNTER 2018-06-05 21:17 | Emergency (ER) | payer MEDICAID ==
[~2018-06-05 21:17] MED LIST changes: +CELE50CA PO
--- NOTE | 2018-06-05 21:29 | NUR ---
BIB [facility] FOR PAIN TO CHEST. PT HAS AUTOIMMUNE COSTROCHRONDRITIS AND STATES "SHE IS HAVING A FLARE UP TONIGHT." 18GAUGE STARTED TO RIGHT AC PER [facility] AND ZOFRAN 4MG IVP GIVEN. EKG DONE UPON ARRIVAL. PHYSICIAN AT BEDSIDE.
[2018-06-05] MEDS ORDERED: KETOROLAC 30 MG/1 ML IVPush ONE (21:30)
[2018-06-05] MEDS ORDERED: KETOROLAC 30 MG/1 ML ONE (21:32)
--- NOTE | 2018-06-05 21:36 | NUR ---
PT MEDICATED FOR PAIN PER EMAR WITH TORADOL 30MG IVP
[2018-06-05 22:15] VITALS: BP 123/74
== END 2018-06-05 22:27 | disposition home or self-care (01) ==
LOC: ED 21:56
DX: R07.89 Other chest pain (principal); Z90.710 Acquired absence of both cervix and uterus; I10 Essential (primary) hypertension; Z86.718 Personal history of other venous thrombosis and embolism; F43.10 Post-traumatic stress disorder, unspecified; J45.909 Unspecified asthma, uncomplicated
CPT/HCPCS: 93005; 96374; 99283; J1885

== ENCOUNTER 2018-09-10 13:25 | Emergency (ER) | payer MEDICAID ==
[~2018-09-10] VITALS: Ht 160 cm; Wt 97.7 kg
[2018-09-10 13:36] VITALS: BP 122/86
== END 2018-09-10 15:56 | disposition home or self-care (01) ==
LOC: ED 15:25
DX: S83.412A Sprain of medial collateral ligament of left knee, initial encounter (principal); M25.572 Pain in left ankle and joints of left foot; M79.675 Pain in left toe(s); I10 Essential (primary) hypertension; F43.10 Post-traumatic stress disorder, unspecified; F32.9 Major depressive disorder, single episode, unspecified; Z86.718 Personal history of other venous thrombosis and embolism; Z90.710 Acquired absence of both cervix and uterus; W19.XXXA Unspecified fall, initial encounter; Y93.89 Activity, other specified; Y92.009 Unspecified place in unspecified non-institutional (private) residence as the place of occurrence of the external cause; Y99.8 Other external cause status
CPT/HCPCS: 99283

== ENCOUNTER 2018-09-28 19:06 | Emergency (ER) | payer MEDICAID ==
[~2018-09-28] VITALS: Ht 160 cm; Wt 102.5 kg
[2018-09-28 19:32] VITALS: BP 173/103
== END 2018-09-28 22:57 | disposition home or self-care (01) ==
LOC: ED 22:45
DX: G89.29 Other chronic pain (principal); M54.5 Low back pain; J45.909 Unspecified asthma, uncomplicated; I10 Essential (primary) hypertension; F41.1 Generalized anxiety disorder; F43.10 Post-traumatic stress disorder, unspecified; F32.9 Major depressive disorder, single episode, unspecified
CPT/HCPCS: 81003; 96372; 99283; J1170

== ENCOUNTER 2018-12-07 18:47 | Emergency (ER) | payer MEDICAID ==
[~2018-12-07] VITALS: Ht 160 cm; Wt 104.2 kg
[2018-12-07 18:57] VITALS: BP 150/97
--- NOTE | 2018-12-07 19:35 | NUR ---
pt to room from lobby
[2018-12-07] MEDS ORDERED: OXYcodone/APAP 5/325MG TABLET PO ONE (20:00)
[2018-12-07] MEDS ORDERED: KETOROLAC 30 MG/1 ML IM ONE (20:00)
[2018-12-07] MEDS ORDERED: KETOROLAC 30 MG/1 ML ONE (20:21)
[2018-12-07] MEDS ORDERED: OXYcodone/APAP 5/325MG TABLET ONE (20:21)
[2018-12-07] MEDS ORDERED: ZOLP-413 PO (20:36)
[2018-12-07] MEDS ORDERED: DULO60CA56 PO (20:36)
[2018-12-07] MEDS ORDERED: ROPI1TAB2 PO (20:36)
[2018-12-07] MEDS ORDERED: PREG50CA58 PO (20:36)
--- NOTE | 2018-12-07 20:44 | NUR ---
THUMB SPICA SPLINT AND ARM SLING APPLIED PER PAIRING MACHINE OPERATOR. PERCOCENT & TORADOL GIVEN PER EMAR.
== END 2018-12-07 21:43 | disposition home or self-care (01) ==
LOC: ED 21:15
DX: S43.81XA Sprain of other specified parts of right shoulder girdle, initial encounter (principal); M10.9 Gout, unspecified; J45.909 Unspecified asthma, uncomplicated; F32.9 Major depressive disorder, single episode, unspecified; F43.10 Post-traumatic stress disorder, unspecified; Z90.710 Acquired absence of both cervix and uterus; Z87.891 Personal history of nicotine dependence; Z12.83 Encounter for screening for malignant neoplasm of skin; X58.XXXA Exposure to other specified factors, initial encounter; Y93.89 Activity, other specified; Y92.89 Other specified places as the place of occurrence of the external cause; Y99.8 Other external cause status
CPT/HCPCS: 29125; 73110; 96372; 99283; J1885

== ENCOUNTER 2018-12-23 04:06 | Emergency (ER) | payer MEDICAID ==
[~2018-12-23] VITALS: Ht 162.6 cm; Wt 98.0 kg
[~2018-12-23 04:06] MED LIST changes: +DULO60CA56 PO; +PREG50CA58 PO; +ROPI1TAB2 PO
--- NOTE | 2018-12-23 04:25 | NUR ---
DURING INTERVIEW PROCESS, THE MINOR IN THE ROOM-PATIENT'S CHILD STATED THAT THE COULD NOT MISS SCHOOL AGAIN BECAUSE OF AN ER VISIT. THE PATIENT STATED "CAN WE JUST NOT TALK ABOUT THIS RIGHT NOW, I'M IN TOO MUCH PAIN". THE PATIENT THEN STATED THAT HE UNDERSTOOD SHE WAS IN PAIN, BUT HE REALIZED HOW LONG THE ER VISIT WOULD TAKE AND COULD NOT MISS SCHOOL AGAIN. THE PATIENT RESPONDED WTIH "I CAN NOT DEAL WITH THIS RIGHT NOW". THE PATIENT'S SON ATTEMPTED TO CONTACT FATHER REGARDING SAP SENIOR DEVELOPER FOR SCHOOL. THE INDIVIDUAL WILL BE PROVIDED WITH TAXI VOUCHER TO GET TO SCHOOL IN ORDER TO PREVENT FURTHER ABSENCES. THE PATIENT MADE A STATEMENT THAT HE HAS MISSED SCHOOL ALREADY THIS WEEK. REPORT FROM EMS THAT THE PATIENT WAS SEEN AT [facility] EARLIER THIS WEEK FOR THE SAME COMPLAINT. THE PATIENT'S SON CAME WITH PATIENT ON EMS RIDE TO THE HOSPITAL.
[2018-12-23 04:42] LABS: BASOPHILS # (AUTO) 0.03 x10^3/uL (0-0.1); BASOPHILS % (AUTO) 1 % (0-1); EOSINOPHILS # (AUTO) 0.18 x10^3/uL (0-0.4); EOSINOPHILS % (AUTO) 3 % (1-7); LYMPHOCYTES % (AUTO) 33 % (22-44); MD NO; MEAN CORPUSCULAR HEMOGLOBIN 28.8 pg (27.0-34.8); MEAN CORPUSCULAR HGB CONC 32.7 g/dL (32.4-35.8); MEAN CORPUSCULAR VOLUME 88.1 fL (80-100); MEAN PLATELET VOLUME 8.4 fL (7.4-10.4); MONOCYTES # (AUTO) 0.52 x10^3/uL (0.2-0.8); MONOCYTES % (AUTO) 8 % (2-9); NEUTROPHILS % (AUTO) 57 % (42-75); PLATELET COUNT 354 x10^3/uL (130-400); RED BLOOD COUNT 4.66 x10^6/uL (3.82-5.3); RED CELL DISTRIBUTION WIDTH 12.8 % (9.6-15.2)
[2018-12-23 04:44] LABS: ALANINE AMINOTRANSFERASE 26 U/L (12-78); ALBUMIN 3.1 g/dL (3.4-5.0); ANION GAP 7 mmol/L (5-15); CALCIUM 8.6 mg/dL (8.5-10.1); CHLORIDE 106 mmol/L (98-107); CREATININE 0.75 mg/dL (0.55-1.02)
[2018-12-23 04:48] LABS: ALKALINE PHOSPHATASE 93 U/L (45-117); BILIRUBIN,TOTAL 0.3 mg/dL (0.2-1.0); TOTAL PROTEIN 6.6 g/dL (6.4-8.2); TROPONIN I < 0.015 ng/mL (0.000-0.045)
[2018-12-23] MEDS ORDERED: KETOROLAC 30 MG/1 ML ONE (04:57)
[2018-12-23] MEDS ORDERED: KETOROLAC 30 MG/1 ML IVPush ONE (05:00)
--- NOTE | 2018-12-23 05:13 | NUR ---
TAXI VOUCHER GIVEN TO THE SON OF THE PATIENT, NAYELI. THE PATIENT WAS RELUCTANT TO GIVE THE NAME OF THE HIGH SCHOOL IN WHICH THE PATIENT ATTENEDED. THE PATIENT GAVE THE NAME WHEN PROMPTED.
--- NOTE | 2018-12-23 05:20 | NUR ---
patient resting in bed, no noted acute distress, vital signs stable. will continue to monitor.
[2018-12-23] MEDS ORDERED: POTASSIUM CHLORIDE 20 MEQ TAB.ER.PRT PO ONE (06:30)
[2018-12-23] MEDS ORDERED: POTASSIUM CHLORIDE 20 MEQ TAB.ER.PRT ONE (06:33)
[2018-12-23 06:41] LABS: TROPONIN I < 0.015 ng/mL (0.000-0.045)
[2018-12-23 06:42] VITALS: BP 140/81
--- NOTE | 2018-12-23 06:43 | NUR ---
patient updated on plan of care, requested pain medication;provider aware. will await further orders.
--- NOTE | 2018-12-23 06:59 | NUR ---
repeat ecg obtained
== END 2018-12-23 07:03 | disposition home or self-care (01) ==
LOC: ED 05:05
DX: R07.89 Other chest pain (principal); E87.6 Hypokalemia; G43.909 Migraine, unspecified, not intractable, without status migrainosus; J45.909 Unspecified asthma, uncomplicated; I10 Essential (primary) hypertension; Z86.718 Personal history of other venous thrombosis and embolism; Z85.828 Personal history of other malignant neoplasm of skin; Z88.0 Allergy status to penicillin; Z88.6 Allergy status to analgesic agent; Z91.048 Other nonmedicinal substance allergy status; Z88.8 Allergy status to other drugs, medicaments and biological substances
CPT/HCPCS: 36415; 71045; 80053; 84484; 84703; 85025; 85379; 93005; 96374; 99284; J1885

== ENCOUNTER 2018-12-29 20:18 | Emergency (ER) | payer MEDICAID ==
[~2018-12-29] VITALS: Ht 160 cm; Wt 103.6 kg
--- NOTE | 2018-12-29 20:20 | NUR ---
BIB AMBULANCE FROM HOME FOR LOWER LUMBAR PAIN S/P L5 EPIDURAL INJECTION TODAY AT [facility]. PT REPORTS "PAIN WORSENING THROUGHOUT DAY, ESPECIALLY WHEN I MOVE, WALK OR BEND OVER." DENIES BOTELLO, INCONTINENCE, N/V/D, NUMBNESS OR ANY TINGLING. CMS AND NEURO INTACT. EMS ESTABLISHED PIV 20G L HAND, 100 MCG FENTANYL AND 1MG VERSED ADMIN BY EMS MASTER PLANNER TO ER. ICE PACK IN PLACE TO LOW BACK BY EMS. PT AMBULATORY ON SCENE PER EMS WITH STEADY GIAT. CONT PULSE OX, BP,CARDIAC MONITORS APPLIED. VSS. ST ON MONITOR. RATES PAIN 5/10 IN LOW BACK. ASSESSMENT COMPLETED. A&OX4. AWAITING EVALUATION BY ERP. SKIN PWD. CAP REFIL BRISK. BILATERAL RADIAL AND PEDAL PULSES NORMAL AND STRONG.
--- NOTE | 2018-12-29 21:15 | NUR ---
DR. VIRAMONTES AT BEDSIDE FOR EVALUATION, AWAITING ORDERS.
[2018-12-29] MEDS ORDERED: LIDODERM 5% PATCH TD ONE ×2 (21:30→22:38)
[2018-12-29] MEDS ORDERED: ACETAMINOPHEN 500 MG TABLET PO ONE (21:30)
[2018-12-29] MEDS ORDERED: DIAZEPAM 5 MG/ML, 10ML VIAL IV ONE (21:30)
[2018-12-29] MEDS ORDERED: KETOROLAC 30 MG/1 ML IVPush ONE (21:30)
[2018-12-29] MEDS ORDERED: DIAZEPAM 5 MG/ML, 2ML ONE (21:41)
[2018-12-29] MEDS ORDERED: ACETAMINOPHEN 500 MG TABLET ONE (21:41)
[2018-12-29] MEDS ORDERED: KETOROLAC 30 MG/1 ML ONE (21:41)
--- NOTE | 2018-12-29 21:43 | NUR ---
LIDODERM 5% PATCH REQUESTED FROM PHARMACY
--- NOTE | 2018-12-29 21:50 | NUR ---
PT MEDICATED NOTED IN EMAR FOR 6/10 LOW BACK PAIN. CMS AND NEURO INTACT. PT WATCHING TV AND PLAYING ON CELL PHONE. VSS. DENIES NEED TO USE RESTROOM. TOLERATING PO FOR MEDICATION ADMIN WELL. CALL LIGHT IN REACH. FALL PRECAUTIONS IN PLACE. AWAITING LIDODERM PATCH FROM PHARMACY
--- NOTE | 2018-12-29 22:14 | NUR ---
PHARMACY CALLED X2 FOR LIDODERM PATCH.
--- NOTE | 2018-12-29 22:18 | NUR ---
DR. VIRAMONTES AT BEDSIDE FOR RECHECK, PT REPORTS "PAIN GONE, SUCH RELIEF, THAT VALIUM WOW." PT CLEARED FOR DISCHARGE BY DR. VIRAMONTES AT THIS TIME. DISCUSSED LIDODERM PATCH THAT HAS NOT COME FROM PHARMACY WITH DR. VIRAMONTES, TO DISCHARGE PT WITHOUT PATCH, MD WILL PROVIDE PRESCRIPTION IF PT DESIRES FOR HOME USE.
--- NOTE | 2018-12-29 22:30 | NUR ---
PT REQUEST LIDODERM PATCH PRIOR TO D/C, DISCUSSED WITH ERP DR. VIRAMONTES, AWARE, OKAY TO WAIT FOR MEDICATION FROM PHARMACY AND D/C S/P ADMIN
--- NOTE | 2018-12-29 22:46 | NUR ---
LIDODERM PATCH RECEIVED FROM PHARMACY, APPLIED TO LEFT LOWER BACK PER PT REQUEST.
[2018-12-29 23:20] VITALS: BP 140/85
== END 2018-12-29 23:23 | disposition home or self-care (01) ==
LOC: ED 21:48
DX: M54.42 Lumbago with sciatica, left side (principal); I10 Essential (primary) hypertension; Z87.891 Personal history of nicotine dependence; Z90.710 Acquired absence of both cervix and uterus
CPT/HCPCS: 96374; 96375; 99283; J1885; J3360

== ENCOUNTER 2019-02-12 17:24 | Emergency (ER) | payer MEDICAID ==
[~2019-02-12] VITALS: Ht 160 cm; Wt 104.3 kg
--- NOTE | 2019-02-12 18:29 | NUR ---
Pt to 33 from lobby
[2019-02-12] MEDS ORDERED: PROMETHAZINE 25 MG/ML, 1ML ONE (18:56)
[2019-02-12] MEDS ORDERED: KETOROLAC 30 MG/1 ML ONE (18:56)
[2019-02-12] MEDS ORDERED: PROMETHAZINE 25 MG/ML, 1ML IM ONE (19:00)
[2019-02-12] MEDS ORDERED: KETOROLAC 30 MG/1 ML IM ONE (19:00)
[2019-02-12 19:31] VITALS: BP 122/68
== END 2019-02-12 19:34 | disposition home or self-care (01) ==
LOC: ED 18:32
DX: S06.0X0A Concussion without loss of consciousness, initial encounter (principal); I10 Essential (primary) hypertension; J45.909 Unspecified asthma, uncomplicated; Z87.891 Personal history of nicotine dependence; Z90.710 Acquired absence of both cervix and uterus; Z98.51 Tubal ligation status; X58.XXXA Exposure to other specified factors, initial encounter; Y93.89 Activity, other specified; Y92.89 Other specified places as the place of occurrence of the external cause; Y99.8 Other external cause status
CPT/HCPCS: 93005; 96372; 99283; J1885; J2550

== ENCOUNTER 2019-03-30 15:00 | Emergency (ER) | payer MEDICAID ==
[~2019-03-30] VITALS: Ht 160 cm; Wt 105.7 kg
[~2019-03-30 15:00] MED LIST changes: +MONT10TA11 PO; -MONT10TA9 PO; -ROPI1TAB2 PO; +ROPI1TAB4 PO; -TRAZ-137 PO; +TRAZ-175 PO
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
--- NOTE | 2019-03-30 15:53 | NUR ---
RECEIVED REPORT FROM LUCIA. PT UPRIGHT ON [facility] WITH DR POE AT BS, NO NEEDS AT THIS TIME, CALL LIGHT WITHIN REACH.
[2019-03-30] MEDS ORDERED: METOCLOPRAMIDE 5 MG/ML, 2ML ONE (16:41)
[2019-03-30] MEDS ORDERED: DIPHENHYDRAMINE 50 MG/ML, 1ML ONE (16:41)
[2019-03-30] MEDS ORDERED: METOCLOPRAMIDE 5 MG/ML, 2ML IVPush ONE (17:00)
[2019-03-30] MEDS ORDERED: SODIUM CHLORIDE 0.9% 1,000ML IVBOLUS ONE (17:00)
[2019-03-30] MEDS ORDERED: DIPHENHYDRAMINE 50 MG/ML, 1ML IVPush ONE (17:00)
[2019-03-30 17:02] LABS: ALBUMIN 3.2 g/dL (3.4-5.0); ANION GAP 6 mmol/L (5-15); CALCIUM 8.5 mg/dL (8.5-10.1); CHLORIDE 108 mmol/L (98-107); CREATININE 0.76 mg/dL (0.55-1.02)
--- NOTE | 2019-03-30 17:03 | NUR ---
PT UPRIGHT ON GURNEY AWAKE & CALM, RESPONDS APPROP TO STAFF, COMFORT MEASURES PROVIDED, CALLLIGHT WITHIN REACH, PT TO CT.
[2019-03-30 17:09] LABS: BASOPHILS # (AUTO) 0.02 x10^3/uL (0-0.1); BASOPHILS % (AUTO) 0 % (0-1); EOSINOPHILS # (AUTO) 0.08 x10^3/uL (0-0.4); EOSINOPHILS % (AUTO) 1 % (1-7); LYMPHOCYTES # (AUTO) 1.51 x10^3/uL (1-3.4); LYMPHOCYTES % (AUTO) 22 % (22-44); MD NO; MEAN CORPUSCULAR HGB CONC 33.8 g/dL (32.4-35.8); MEAN CORPUSCULAR VOLUME 85.9 fL (80-100); MEAN PLATELET VOLUME 8.4 fL (7.4-10.4); MONOCYTES # (AUTO) 0.33 x10^3/uL (0.2-0.8); MONOCYTES % (AUTO) 5 % (2-9); NEUTROPHILS # (AUTO) 4.99 x10^3/uL (1.8-6.8); NEUTROPHILS % (AUTO) 72 % (42-75); PLATELET COUNT 392 x10^3/uL (130-400); RED BLOOD COUNT 4.86 x10^6/uL (3.82-5.3); RED CELL DISTRIBUTION WIDTH 13.7 % (9.6-15.2)
[2019-03-30 17:20] LABS: CULTURE INDICATED? YES; MICROSCOPIC INDICATED
[2019-03-30] MEDS ORDERED: POTASSIUM CHLORIDE 20 MEQ TAB.ER.PRT ONE (17:28)
[2019-03-30] MEDS ORDERED: POTASSIUM CHLORIDE 20 MEQ TAB.ER.PRT PO ONE (18:00)
--- NOTE | 2019-03-30 18:01 | NUR ---
PT REMAINS UPRIGHT ON GURNEY AWAKE & MORE COMFORTABLE AFTER MEDS, RESPONDS APPROP TO STAFF, COMFORT MEASURES PROVIDED, FAMILY AT VS, CALL LIGHT WITHIN REACH.
[2019-03-30 18:33] VITALS: BP 140/98
--- NOTE | 2019-03-30 18:47 | NUR ---
Patient given discharge instructions and Rx, they have confirmed that they understand the instructions. Patient ambulatory with steady gait.
== END 2019-03-30 18:53 | disposition home or self-care (01) ==
LOC: ED 18:25
DX: G44.52 New daily persistent headache (NDPH) (principal); I10 Essential (primary) hypertension; J45.909 Unspecified asthma, uncomplicated; Z90.710 Acquired absence of both cervix and uterus; Z86.718 Personal history of other venous thrombosis and embolism; Z85.828 Personal history of other malignant neoplasm of skin
CPT/HCPCS: 36415; 70450; 80048; 81001; 82040; 85025; 87086; 93005; 96361; 96374; 96375; 99285; J1200; J2765; J7030

== ENCOUNTER 2019-04-03 16:30 | Emergency (ER) | payer MEDICAID ==
[~2019-04-03] VITALS: Ht 160 cm; Wt 105.1 kg
--- NOTE | 2019-04-03 16:38 | NUR ---
Pt BIB [facility] from home with c/o migraine BOTELLO "everywhere, but worse in the front of my head" intermittently x2 weeks. Pt states hx migraines but she has been going through "a lot of stress" in her life recently and she feels that this is what is causing her BOTELLO. Pt states pain is worse with exposure to light, also c/o nausea that has resolved after EMS administered zofran ODT. Pt able to position self for comfort in bed, declines warm blanket offered. Pt has no neuro defecits. Lights in room dimmed for pt comfort. Continuous oxygen and BP Monitors applied, all safety measures observed.
[2019-04-03] MEDS ORDERED: DULO20CA45 PO (16:43)
[2019-04-03] MEDS ORDERED: FAMO-79 PO (16:43)
[2019-04-03] MEDS ORDERED: DIAZEPAM 5 MG TABLET PO ONE (17:00)
[2019-04-03] MEDS ORDERED: HYDROmorphone 1 MG/ML, 1ML INJ IM ONE ×2 (17:00→19:00)
[2019-04-03] MEDS ORDERED: KETOROLAC 30 MG/1 ML IM ONE (17:00)
--- NOTE | 2019-04-03 17:00 | NUR ---
medicated for c/o headache pain, water given, able to tolerate pills well, A&Ox3, speech clear
[2019-04-03] MEDS ORDERED: KETOROLAC 60 MG/2 ML ONE (17:09)
[2019-04-03] MEDS ORDERED: DIAZEPAM 5 MG TABLET ONE (17:09)
[2019-04-03] MEDS ORDERED: HYDROmorphone 1 MG/ML, 1ML INJ ONE ×2 (17:10→18:52)
--- NOTE | 2019-04-03 18:15 | NUR ---
pain reevaluated, states headache pain worse and shifting in bed with pillow covering face, Dr Lorenzo made aware, repeat vs obtained
--- NOTE | 2019-04-03 18:45 | NUR ---
provifder @ bedside with pt
--- NOTE | 2019-04-03 18:51 | NUR ---
REPORT OF PT FROM EVERT SAHA AND ASSUMING CARE OF PT AT THIS TIME.
--- NOTE | 2019-04-03 18:51 | NUR ---
VERBAL ORDERS RECEIVED FROM DR WEST AT THIS TIME FOR IM PAIN AND NAUSEA MEDS.
[2019-04-03] MEDS ORDERED: PROMETHAZINE 25 MG/ML, 1ML ONE (18:52)
[2019-04-03] MEDS ORDERED: PROMETHAZINE 25 MG/ML, 1ML IM ONE (19:00)
[2019-04-03 19:30] VITALS: BP 108/79
--- NOTE | 2019-04-03 19:31 | NUR ---
PT D/C WITH D/C SUMMARY AND SCRIPTS. VSS AND UPDATED IN EMR. PT DENIES ANY OTHER NEEDS PERTAINING TO THIS VISIT AND AMBULATES WITH FATHER TO REGISTRATION DESK WITH STEADY GAIT FOR D/C HOME. PT SIGNED CONTROLLED SUBSTANCE DOCUMENT WHICH WAS PLACED WITH PT CHART AND PLACED IN BASKET AT WHITE SHOE RAGGER.
== END 2019-04-03 19:32 ==
LOC: ED 19:29
DX: G44.229 Chronic tension-type headache, not intractable (principal); H53.149 Visual discomfort, unspecified; I10 Essential (primary) hypertension; J45.909 Unspecified asthma, uncomplicated; M79.10 Myalgia, unspecified site; M10.9 Gout, unspecified; Z86.718 Personal history of other venous thrombosis and embolism; Z87.891 Personal history of nicotine dependence
CPT/HCPCS: 96372; 99284; J1170; J1885; J2550

== ENCOUNTER 2019-04-17 18:52 | Emergency (ER) | payer MEDICAID ==
[~2019-04-17] VITALS: Ht 160 cm; Wt 108.9 kg
[~2019-04-17 18:52] MED LIST changes: +DULO20CA45 PO; +FAMO-79 PO
[2019-04-17 18:59] VITALS: BP 134/92
--- NOTE | 2019-04-17 19:05 | NUR ---
PT BIB [facility] FROM HOME. PT STATES SHE HIT HEAD BUT CANNOT REMEMBER WHAT SHE HIT HER HEAD ON OR IF SHE LOST CONSCIOUSNESS. PT DOES STATE NAUSEA AND PAIN, MEDICATED EN ROUTE BY EMS WITH 50MCG IVP FENTANYL AND 4MG IVP ZOFRAN THROUGH 20G PIV IN R AC. FSBG PER EMS WAS 106. PT AAO X 4, NAD, ROOM AIR, CALL LIGHT WITHIN REACH. SIDERAIL X [address] PER EMS, PT WAS AT STORE AND WAS DRIVING HOME AND GOT DIZZY AND SON HAD TO DRIVE HOME. PT IN GOWN AND ON FULL MONITOR, MD AT BEDSIDE.
--- NOTE | 2019-04-17 19:15 | NUR ---
PT TO CT.
--- NOTE | 2019-04-17 19:21 | NUR ---
PT BACK FROM CT.
--- NOTE | 2019-04-17 19:44 | NUR ---
ALL RESULTS BACK AT THIS TIME, CHART UP FOR RECHECK.
--- NOTE | 2019-04-17 20:51 | NUR ---
Patient/Caregiver given discharge instructions and they have confirmed that they understand the instructions. Patient ambulatory with steady gait.
== END 2019-04-17 21:05 ==
LOC: ED 20:59
DX: S06.0X0A Concussion without loss of consciousness, initial encounter (principal); R41.0 Disorientation, unspecified; R41.3 Other amnesia; J45.909 Unspecified asthma, uncomplicated; E87.6 Hypokalemia; I10 Essential (primary) hypertension; F17.210 Nicotine dependence, cigarettes, uncomplicated; R94.31 Abnormal electrocardiogram [ECG] [EKG]; Z90.710 Acquired absence of both cervix and uterus; Z98.51 Tubal ligation status; Z86.718 Personal history of other venous thrombosis and embolism; X58.XXXA Exposure to other specified factors, initial encounter; Y93.G1 Activity, food preparation and clean up; Y92.020 Kitchen in mobile home as the place of occurrence of the external cause; Y99.8 Other external cause status
CPT/HCPCS: 70450; 93005; 99284

== ENCOUNTER 2019-04-22 20:37 | Emergency (ER) | payer MEDICAID ==
[~2019-04-22] VITALS: Ht 160 cm; Wt 111.1 kg
--- NOTE | 2019-04-22 20:44 | NUR ---
43Y F BIB EMS FROM [facility] FOR L SIDED CP (NON RADIATING, NO NAUSEA, NO SWEATING) PT ABLE TO SPEAK IN FULL SENTENCES AT THIS TIME. REPORTS PAIN 15/10. PT CONNECTED TO ALL MONITORING
[2019-04-22] MEDS ORDERED: KETOROLAC 30 MG/1 ML IVPush ONE (21:00)
[2019-04-22 21:10] LABS: BASOPHILS # (AUTO) 0.07 x10^3/uL (0-0.1); BASOPHILS % (AUTO) 1 % (0-1); EOSINOPHILS # (AUTO) 0.16 x10^3/uL (0-0.4); EOSINOPHILS % (AUTO) 2 % (1-7); LYMPHOCYTES # (AUTO) 1.97 x10^3/uL (1-3.4); LYMPHOCYTES % (AUTO) 29 % (22-44); MD NO; MEAN CORPUSCULAR HEMOGLOBIN 28.5 pg (27.0-34.8); MEAN CORPUSCULAR HGB CONC 33.1 g/dL (32.4-35.8); MEAN PLATELET VOLUME 8.2 fL (7.4-10.4); MONOCYTES # (AUTO) 0.42 x10^3/uL (0.2-0.8); MONOCYTES % (AUTO) 6 % (2-9); NEUTROPHILS # (AUTO) 4.09 x10^3/uL (1.8-6.8); NEUTROPHILS % (AUTO) 61 % (42-75); PLATELET COUNT 378 x10^3/uL (130-400); RED BLOOD COUNT 4.68 x10^6/uL (3.82-5.3); RED CELL DISTRIBUTION WIDTH 13.3 % (9.6-15.2)
[2019-04-22 21:19] LABS: ANION GAP 7 mmol/L (5-15); CALCIUM 8.3 mg/dL (8.5-10.1); CHLORIDE 107 mmol/L (98-107); CREATININE 0.66 mg/dL (0.55-1.02)
[2019-04-22 21:23] LABS: TROPONIN I < 0.015 ng/mL (0.000-0.045)
[2019-04-22] MEDS ORDERED: KETOROLAC 30 MG/1 ML ONE (21:28)
[2019-04-22 22:08] VITALS: BP 156/69
--- NOTE | 2019-04-22 22:10 | NUR ---
Patient/Caregiver given discharge instructions and they have confirmed that they understand the instructions. Patient ambulatory with steady gait. PIV DC PRIOR TO PT LEAVING FACILITY
== END 2019-04-22 22:13 | disposition home or self-care (01) ==
LOC: ED 21:00
DX: M94.0 Chondrocostal junction syndrome [Tietze] (principal); R07.89 Other chest pain; J45.909 Unspecified asthma, uncomplicated; I10 Essential (primary) hypertension; Z87.891 Personal history of nicotine dependence; Z90.710 Acquired absence of both cervix and uterus
CPT/HCPCS: 36415; 71045; 80048; 82040; 84484; 85025; 93005; 96374; 99285; J1885

== ENCOUNTER 2019-05-09 16:10 | Emergency (ER) | payer MEDICAID ==
[~2019-05-09] VITALS: Ht 160 cm; Wt 110.0 kg
[2019-05-09 16:53] LABS: BASOPHILS % (AUTO) 1 % (0-1); EOSINOPHILS # (AUTO) 0.15 x10^3/uL (0-0.4); EOSINOPHILS % (AUTO) 2 % (1-7); LYMPHOCYTES # (AUTO) 2.04 x10^3/uL (1-3.4); LYMPHOCYTES % (AUTO) 27 % (22-44); MD NO; MEAN CORPUSCULAR HEMOGLOBIN 28.5 pg (27.0-34.8); MEAN CORPUSCULAR HGB CONC 33.2 g/dL (32.4-35.8); MEAN CORPUSCULAR VOLUME 85.9 fL (80-100); MEAN PLATELET VOLUME 7.6 fL (7.4-10.4); MONOCYTES # (AUTO) 0.42 x10^3/uL (0.2-0.8); MONOCYTES % (AUTO) 6 % (2-9); NEUTROPHILS # (AUTO) 4.88 x10^3/uL (1.8-6.8); NEUTROPHILS % (AUTO) 64 % (42-75); PLATELET COUNT 404 x10^3/uL (130-400); RED BLOOD COUNT 5.01 x10^6/uL (3.82-5.3); RED CELL DISTRIBUTION WIDTH 12.6 % (9.6-15.2)
[2019-05-09 17:05] LABS: ALANINE AMINOTRANSFERASE 27 U/L (12-78); ALBUMIN 3.1 g/dL (3.4-5.0); ANION GAP 6 mmol/L (5-15); CALCIUM 8.6 mg/dL (8.5-10.1); CHLORIDE 106 mmol/L (98-107); CREATININE 0.63 mg/dL (0.55-1.02)
[2019-05-09 17:10] LABS: ALKALINE PHOSPHATASE 99 U/L (45-117); BILIRUBIN,TOTAL 0.2 mg/dL (0.2-1.0); TROPONIN I < 0.015 ng/mL (0.000-0.045)
--- NOTE | 2019-05-09 18:16 | NUR ---
obstetrics nurse: Pt wheeled to ED room 17 from lobby in [facility] at this time.
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
[2019-05-09] MEDS ORDERED: OXYcodone/APAP 5/325MG TABLET ONE (18:54)
[2019-05-09] MEDS ORDERED: METHOCARBAMOL 750 MG TABLET ONE (18:54)
[2019-05-09] MEDS ORDERED: METHOCARBAMOL 750 MG TABLET PO ONE (19:00)
[2019-05-09] MEDS ORDERED: OXYcodone/APAP 5/325MG TABLET PO ONE (19:00)
--- NOTE | 2019-05-09 19:08 | NUR ---
REPORT GIVEN TO EVERT OSBORNE. PLAN OF CARE DISCUSSED. PATIENT TO BE DISCHARGED
[2019-05-09 20:02] VITALS: BP 147/90
== END 2019-05-09 20:04 | disposition home or self-care (01) ==
LOC: ED 19:30
DX: G44.211 Episodic tension-type headache, intractable (principal)
CPT/HCPCS: 36415; 71045; 80053; 84484; 85025; 93005; 99285

== ENCOUNTER 2019-05-29 16:23 | Emergency (ER) | payer MEDICAID ==
[~2019-05-29] VITALS: Ht 160 cm; Wt 109.0 kg
[2019-05-29] MEDS ORDERED: DIPHENHYDRAMINE 50 MG/ML, 1ML IVPush ONE (17:00)
[2019-05-29] MEDS ORDERED: DIPHENHYDRAMINE 50 MG/ML, 1ML ONE (17:52)
[2019-05-29] MEDS ORDERED: ONDANSETRON ODT 4 MG ONE (17:52)
[2019-05-29] MEDS ORDERED: KETOROLAC 30 MG/1 ML ONE (17:52)
[2019-05-29] MEDS ORDERED: SODIUM CHLORIDE FLUSH 10ML SYR IVF ONE (18:00)
[2019-05-29] MEDS ORDERED: SODIUM CHLORIDE 0.9% 1,000ML IVBOLUS ONE (18:00)
[2019-05-29] MEDS ORDERED: ONDANSETRON ODT 4 MG PO ONE (18:00)
[2019-05-29] MEDS ORDERED: KETOROLAC 30 MG/1 ML IVPush ONE (18:00)
--- NOTE | 2019-05-29 18:53 | NUR ---
PT LAYING IN BED, NO SIGNS OF DISTRESS.
--- NOTE | 2019-05-29 18:54 | NUR ---
PT AMBULATORY TO BATHROOM, STEADY GAIT.
--- NOTE | 2019-05-29 19:00 | NUR ---
REPORT GIVEN TO EVERT CALLAHAN.
--- NOTE | 2019-05-29 19:07 | NUR ---
Report received from EVERT Mcclellan. This RN to assume care. Patient up to bathroom stating her pain has not decreased. Meds to be admin per apr.
[2019-05-29] MEDS ORDERED: DIPHENHYDRAMINE 25 MG CAPSULE ONE (19:10)
[2019-05-29] MEDS ORDERED: SUMATRIPTAN 25 MG TABLET ONE (19:10)
[2019-05-29] MEDS ORDERED: DIPHENHYDRAMINE 25 MG CAPSULE PO ONE (19:30)
[2019-05-29] MEDS ORDERED: SUMATRIPTAN 25 MG TABLET PO PRN (19:30)
[2019-05-29] MEDS ORDERED: OXYcodone/APAP 10/325MG TABLET ONE (20:06)
[2019-05-29 20:13] VITALS: BP 156/90
--- NOTE | 2019-05-29 20:13 | NUR ---
Patient states she still has pain. Medicated patient per mar.
--- NOTE | 2019-05-29 20:20 | NUR ---
Discharge instructions given. All questions and concerns addressed. Patient ambulatory with a steady gait. Belongings with patient.
[2019-05-29] MEDS ORDERED: OXYcodone/APAP 10/325MG TABLET PO ONE (20:30)
== END 2019-05-29 20:22 | disposition home or self-care (01) ==
LOC: ED 18:52
DX: G43.909 Migraine, unspecified, not intractable, without status migrainosus (principal); R11.2 Nausea with vomiting, unspecified; J45.909 Unspecified asthma, uncomplicated; I10 Essential (primary) hypertension; Z87.891 Personal history of nicotine dependence; Z86.718 Personal history of other venous thrombosis and embolism; E66.01 Morbid (severe) obesity due to excess calories; Z68.39 Body mass index [BMI] 39.0-39.9, adult; Z85.828 Personal history of other malignant neoplasm of skin
CPT/HCPCS: 96361; 96374; 96375; 99284; J1200; J1885; J7030; Q0162; Q0163

== ENCOUNTER 2019-06-22 22:02 | Emergency (ER) | payer MEDICAID ==
[~2019-06-22] VITALS: Ht 160 cm; Wt 110.0 kg
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
[2019-06-22] MEDS ORDERED: HYDROcodone/APAP 5/325 TABLET PO ONE (22:30)
[2019-06-22] MEDS ORDERED: DIAZEPAM 5 MG TABLET PO ONE (22:30)
[2019-06-22] MEDS ORDERED: HYDROcodone/APAP 5/325 TABLET ONE (22:34)
[2019-06-22] MEDS ORDERED: DIAZEPAM 5 MG TABLET ONE (22:34)
--- NOTE | 2019-06-22 22:37 | NUR ---
PATIENT MEDICATED PER EMAR, TOLERATED WELL
--- NOTE | 2019-06-22 23:24 | NUR ---
PATIENT AMBULATORY WITH STEADY GAIT TO RESTROOM
[2019-06-23] VITALS: BP 159/96
[2019-06-23] MEDS ORDERED: METHOCARBAMOL 750 MG TABLET PO ONE
[2019-06-23] MEDS ORDERED: HYDROcodone/APAP 5/325 TABLET PO ONE
[2019-06-23] MEDS ORDERED: KETOROLAC 30 MG/1 ML IM ONE
[2019-06-23] MEDS ORDERED: KETOROLAC 30 MG/1 ML ONE (00:05)
[2019-06-23] MEDS ORDERED: METHOCARBAMOL 750 MG TABLET ONE (00:05)
[2019-06-23] MEDS ORDERED: HYDROcodone/APAP 5/325 TABLET ONE (00:06)
--- NOTE | 2019-06-23 00:15 | NUR ---
PATIENT MEDICATED PER EMAR, TOLERATED WELL
--- NOTE | 2019-06-23 00:16 | NUR ---
ICE PACK APPLIED TO EFFECTED AREA
--- NOTE | 2019-06-23 00:59 | NUR ---
PATIENT STATES GREAT IMPROVEMENT IN PAIN AFTER LAST DOSE OF MEDICATIONS, CHANGED INTO CLOTHING, GIVEN DISCHARGE INSTRUCTIONS, PATIENT VERBALIZED UNDERSTANDING. PATIENT WHEELED TO DISCHARGE, SON HERE TO PICK PATIENT UP
== END 2019-06-23 01:01 | disposition home or self-care (01) ==
LOC: ED 22:58
DX: M54.5 Low back pain (principal); I10 Essential (primary) hypertension; J45.909 Unspecified asthma, uncomplicated; E66.01 Morbid (severe) obesity due to excess calories; Z87.891 Personal history of nicotine dependence; Z90.710 Acquired absence of both cervix and uterus; Z86.718 Personal history of other venous thrombosis and embolism; Z68.41 Body mass index [BMI] 40.0-44.9, adult; Y04.0XXA Assault by unarmed brawl or fight, initial encounter; Y93.89 Activity, other specified; Y92.410 Unspecified street and highway as the place of occurrence of the external cause; Y99.8 Other external cause status
CPT/HCPCS: 96372; 99284; J1885

== ENCOUNTER 2019-07-13 23:30 | Emergency (ER) | payer MEDICAID ==
[~2019-07-13] VITALS: Ht 160 cm; Wt 112.0 kg
[2019-07-13] MEDS ORDERED: PLEASE ENTER HEIGHT AND WEIGHT MC SCH (23:45)
[2019-07-13] MEDS ORDERED: MECLIZINE CHEWABLE 25 MG TAB ONE (23:56)
[2019-07-14] MEDS ORDERED: MECLIZINE CHEWABLE 25 MG TAB PO ONE
[2019-07-14] MEDS ORDERED: SODIUM CHLORIDE 0.9% 1,000ML IVBOLUS ONE
[2019-07-14] MEDS ORDERED: SODIUM CHLORIDE FLUSH 10ML SYR IVF ONE
--- NOTE | 2019-07-14 00:02 | NUR ---
PT RESTING ON GURNEY, MONIOTRS APPLIED, SIDERAILS UP X2, CALL LIGHT WITHIN REACH. PT MEDICATED PER APR, IV FLUIDS INFUSING
[2019-07-14] MEDS ORDERED: BISA-49 PO (00:13)
[2019-07-14] MEDS ORDERED: DOXY20TA5 PO (00:13)
[2019-07-14] MEDS ORDERED: CLIN150C14 PO (00:13)
[2019-07-14 00:31] LABS: ALANINE AMINOTRANSFERASE 30 U/L (12-78); ALBUMIN 2.9 g/dL (3.4-5.0); ANION GAP 8 mmol/L (5-15); CALCIUM 7.9 mg/dL (8.5-10.1); CHLORIDE 105 mmol/L (98-107); CREATININE 0.78 mg/dL (0.55-1.02); T4 (THYROXINE) 11.2 mcg/dL (4.8-13.9)
[2019-07-14 00:36] LABS: ALKALINE PHOSPHATASE 101 U/L (45-117); BILIRUBIN,TOTAL 0.3 mg/dL (0.2-1.0); TOTAL PROTEIN 6.7 g/dL (6.4-8.2); TROPONIN I < 0.015 ng/mL (0.000-0.045)
--- NOTE | 2019-07-14 00:49 | NUR ---
PT RESTING ON GURNEY, MONITORS IN PLACE, PROVIDED PT WITH WARM BLANKET, CALL LIGHT WITHIN REACH. AWAITING LAB RESULTS
[2019-07-14 01:20] LABS: BASOPHILS # (AUTO) 0.04 x10^3/uL (0-0.1); BASOPHILS % (AUTO) 1 % (0-1); EOSINOPHILS # (AUTO) 0.15 x10^3/uL (0-0.4); EOSINOPHILS % (AUTO) 2 % (1-7); LYMPHOCYTES % (AUTO) 31 % (22-44); MD NO; MEAN CORPUSCULAR HEMOGLOBIN 27.7 pg (27.0-34.8); MEAN CORPUSCULAR HGB CONC 32.4 g/dL (32.4-35.8); MEAN CORPUSCULAR VOLUME 85.6 fL (80-100); MEAN PLATELET VOLUME 8.9 fL (7.4-10.4); MONOCYTES # (AUTO) 0.43 x10^3/uL (0.2-0.8); MONOCYTES % (AUTO) 6 % (2-9); NEUTROPHILS # (AUTO) 4.62 x10^3/uL (1.8-6.8); NEUTROPHILS % (AUTO) 61 % (42-75); PLATELET COUNT 439 x10^3/uL (130-400); RED BLOOD COUNT 4.44 x10^6/uL (3.82-5.3)
--- NOTE | 2019-07-14 01:36 | NUR ---
pt resting on gurney, denies needs, monitors reapplied, call light within reach
--- NOTE | 2019-07-14 01:50 | NUR ---
NOTED PT'S HR-137 WITH OCCASIONAL PVC'S, PT DENIES PALPITATIONS, DIZZINESS OR NAUSEA, STATED " MY CHEST JUST HAS BURNING FEELING. ERP UPDATED REGARDING PT STATUS AND HR. REPEAT EKG COMPLETED AND GIVEN TO ERP.
[2019-07-14] MEDS ORDERED: POTASSIUM CHLORIDE 20 MEQ TAB.ER.PRT ONE (01:54)
--- NOTE | 2019-07-14 01:57 | NUR ---
PT MEDICATED PER MAR
[2019-07-14 02:00] VITALS: BP 157/83
[2019-07-14] MEDS ORDERED: POTASSIUM CHLORIDE 20 MEQ TAB.ER.PRT PO ONE (02:00)
== END 2019-07-14 02:17 | disposition home or self-care (01) ==
LOC: ED 07-14 00:03
DX: E87.6 Hypokalemia (principal); E86.0 Dehydration; R00.2 Palpitations; R42 Dizziness and giddiness; R00.0 Tachycardia, unspecified; I10 Essential (primary) hypertension; Z86.718 Personal history of other venous thrombosis and embolism; Z87.891 Personal history of nicotine dependence; Z95.0 Presence of cardiac pacemaker; Z90.710 Acquired absence of both cervix and uterus
CPT/HCPCS: 36415; 80053; 84436; 84443; 84484; 84703; 85025; 93005; 96360; 96361; 99284; J7030

== ENCOUNTER 2019-07-21 14:54 | Emergency (ER) | payer MEDICAID ==
[~2019-07-21] VITALS: Ht 160 cm; Wt 110.7 kg
[~2019-07-21 14:54] MED LIST changes: +BISA-49 PO; +CLIN150C14 PO; +DOXY20TA5 PO
--- NOTE | 2019-07-21 15:40 | NUR ---
PT HAS CO OF CHEST PAIN STARTING YESTERDAY AND INCREASED FATIGUE. PT DENIES N/V OR SOB. PAIN IN LEFT CHEST. NO DIAPHORESIS. VSS STABLE. STATES HX OF PVC. DENIES RECENT STRESSORS. STATES "I DONT FEEL LIKE MYSELF"
[2019-07-21 16:08] LABS: BASOPHILS # (AUTO) 0.04 x10^3/uL (0-0.1); BASOPHILS % (AUTO) 1 % (0-1); EOSINOPHILS # (AUTO) 0.12 x10^3/uL (0-0.4); EOSINOPHILS % (AUTO) 2 % (1-7); LYMPHOCYTES # (AUTO) 1.52 x10^3/uL (1-3.4); LYMPHOCYTES % (AUTO) 23 % (22-44); MD NO; MEAN CORPUSCULAR HEMOGLOBIN 28.2 pg (27.0-34.8); MEAN CORPUSCULAR HGB CONC 33.2 g/dL (32.4-35.8); MEAN CORPUSCULAR VOLUME 84.8 fL (80-100); MEAN PLATELET VOLUME 8.4 fL (7.4-10.4); MONOCYTES # (AUTO) 0.34 x10^3/uL (0.2-0.8); MONOCYTES % (AUTO) 5 % (2-9); NEUTROPHILS # (AUTO) 4.74 x10^3/uL (1.8-6.8); NEUTROPHILS % (AUTO) 70 % (42-75); PLATELET COUNT 406 x10^3/uL (130-400); RED BLOOD COUNT 4.93 x10^6/uL (3.82-5.3); RED CELL DISTRIBUTION WIDTH 13.2 % (9.6-15.2)
[2019-07-21 16:13] LABS: ANION GAP 7 mmol/L (5-15); CALCIUM 8.6 mg/dL (8.5-10.1); CHLORIDE 105 mmol/L (98-107); CREATININE 0.85 mg/dL (0.55-1.02)
[2019-07-21 16:17] LABS: TROPONIN I < 0.015 ng/mL (0.000-0.045)
[2019-07-21] MEDS ORDERED: KETOROLAC 30 MG/1 ML IM ONE (17:00)
[2019-07-21] MEDS ORDERED: KETOROLAC 30 MG/1 ML ONE ×2 (17:02→17:05)
[2019-07-21 17:13] VITALS: BP 128/88
--- NOTE | 2019-07-21 17:18 | NUR ---
MEDICATED FOR PAIN, CO BOTELLO AND CHEST PAIN
--- NOTE | 2019-07-21 18:35 | NUR ---
Patient/Caregiver given discharge instructions and they have confirmed that they understand the instructions. Patient ambulatory with steady gait.
== END 2019-07-21 18:37 | disposition home or self-care (01) ==
LOC: ED 15:57
DX: R00.2 Palpitations (principal); R07.9 Chest pain, unspecified; R00.0 Tachycardia, unspecified; I10 Essential (primary) hypertension; M10.9 Gout, unspecified; E66.01 Morbid (severe) obesity due to excess calories; J45.909 Unspecified asthma, uncomplicated; Z86.718 Personal history of other venous thrombosis and embolism; Z90.710 Acquired absence of both cervix and uterus; Z88.0 Allergy status to penicillin; Z88.6 Allergy status to analgesic agent; Z68.41 Body mass index [BMI] 40.0-44.9, adult
CPT/HCPCS: 36415; 71045; 80048; 82040; 84443; 84484; 85025; 93005; 96372; 99285; J1885

== ENCOUNTER 2019-07-24 21:43 | Emergency (ER) | payer MEDICAID ==
[~2019-07-24] VITALS: Ht 160 cm; Wt 112.0 kg
--- NOTE | 2019-07-24 21:54 | NUR ---
PT BIB [facility] FOR CP STARTING APPROX. 2 HOURS AGO. SUBSTERNAL, STERNAL AND L SIDED. PT STATES IT IS AN 8/10 PRESSURE OR SQUEEZING FEELING. PT CHANGED INTO GOWN, RESTING ON GURNEY. PT IS NAD, RESP WNL, P/W/D, PULSES AND CMS INTACT. GROSS NEURO INTACT. CALL LIGHT ON LAP GIVEN 324 MG ASPIRIN EN ROUTE BY JACK VIRAMONTES MD AT BS FOR EVAL AND POC GAVE KINJAL RN BS REPORT, PT CARE TRANSFERRED AT THIS TIME
[2019-07-24] MEDS ORDERED: MECL-101 PO (22:08)
[2019-07-24] MEDS ORDERED: PREG50CA PO (22:08)
[2019-07-24] MEDS ORDERED: CELE200C PO (22:08)
[2019-07-24] MEDS ORDERED: METH750T2 PO (22:08)
[2019-07-24] MEDS ORDERED: METO25TA35 PO (22:08)
[2019-07-24] MEDS ORDERED: DOXE10CA PO (22:10)
--- NOTE | 2019-07-24 22:11 | NUR ---
ERP TO BEDSIDE.
--- NOTE | 2019-07-24 22:32 | NUR ---
PT TO IMAGING.
--- NOTE | 2019-07-24 22:40 | NUR ---
PT BACK FROM IMAGING, ON PHONE, NO SIGNS OF DISTRESS.
[2019-07-24 23:04] LABS: BASOPHILS # (AUTO) 0.04 x10^3/uL (0-0.1); BASOPHILS % (AUTO) 0 % (0-1); EOSINOPHILS # (AUTO) 0.16 x10^3/uL (0-0.4); EOSINOPHILS % (AUTO) 2 % (1-7); LYMPHOCYTES # (AUTO) 2.25 x10^3/uL (1-3.4); LYMPHOCYTES % (AUTO) 25 % (22-44); MD NO; MEAN CORPUSCULAR HEMOGLOBIN 28.1 pg (27.0-34.8); MEAN CORPUSCULAR HGB CONC 33.2 g/dL (32.4-35.8); MEAN CORPUSCULAR VOLUME 84.5 fL (80-100); MEAN PLATELET VOLUME 8.6 fL (7.4-10.4); MONOCYTES # (AUTO) 0.46 x10^3/uL (0.2-0.8); MONOCYTES % (AUTO) 5 % (2-9); NEUTROPHILS # (AUTO) 6.22 x10^3/uL (1.8-6.8); NEUTROPHILS % (AUTO) 68 % (42-75); PLATELET COUNT 418 x10^3/uL (130-400); RED BLOOD COUNT 4.97 x10^6/uL (3.82-5.3); RED CELL DISTRIBUTION WIDTH 13.1 % (9.6-15.2)
[2019-07-24 23:05] LABS: ALBUMIN 3.1 g/dL (3.4-5.0); ANION GAP 7 mmol/L (5-15); CALCIUM 8.3 mg/dL (8.5-10.1); CHLORIDE 108 mmol/L (98-107)
[2019-07-24 23:11] LABS: CREATININE 0.93 mg/dL (0.55-1.02); TROPONIN I < 0.015 ng/mL (0.000-0.045)
--- NOTE | 2019-07-24 23:24 | NUR ---
PT LAYING IN BED, WATCHING TV, VSS, NO SIGNS OF DISTRESS, SON AT BEDSIDE, CALL LIGHT WITHIN REACH.
[2019-07-24] MEDS ORDERED: ACETAMINOPHEN 500 MG TABLET PO ONE (23:30)
[2019-07-24] MEDS ORDERED: KETOROLAC 30 MG/1 ML IM ONE (23:30)
[2019-07-24] MEDS ORDERED: KETOROLAC 30 MG/1 ML ONE (23:31)
[2019-07-24] MEDS ORDERED: ACETAMINOPHEN 500 MG TABLET ONE (23:31)
[2019-07-25] MEDS ORDERED: MORPHINE SULFATE 4 MG/ML, 1ML ONE (00:17)
[2019-07-25] MEDS ORDERED: ONDANSETRON 2MG/ML, 2ML ONE (00:17)
--- NOTE | 2019-07-25 00:24 | NUR ---
PT LAYING IN BED, WATCHING TV, MEDICATED TO APR. WILL CONTINUE TO MONITOR.
[2019-07-25] MEDS ORDERED: MORPHINE SULFATE 4 MG/ML, 1ML IVPush PRN (00:30)
[2019-07-25] MEDS ORDERED: ONDANSETRON 2MG/ML, 2ML IVPush ONE (00:30)
[2019-07-25 00:31] VITALS: BP 151/74
== END 2019-07-25 00:41 | disposition home or self-care (01) ==
LOC: ED 22:49
DX: R07.89 Other chest pain (principal); R11.0 Nausea; R94.31 Abnormal electrocardiogram [ECG] [EKG]; I10 Essential (primary) hypertension; J45.909 Unspecified asthma, uncomplicated; Z86.718 Personal history of other venous thrombosis and embolism; Z90.710 Acquired absence of both cervix and uterus; Z87.891 Personal history of nicotine dependence
CPT/HCPCS: 36415; 71045; 80048; 82040; 83880; 84484; 84703; 85025; 85379; 93005; 93971; 96372; 96374; 96375; 99285; J1885; J2270; J2405

== ENCOUNTER 2019-07-29 18:57 | Emergency (ER) | payer MEDICAID ==
[~2019-07-29] VITALS: Ht 160 cm; Wt 111.4 kg
[~2019-07-29 18:57] MED LIST changes: +CELE200C PO; +DOXE10CA PO; +MECL-101 PO; +METH750T2 PO; +METO25TA35 PO; +PREG50CA PO
[2019-07-29 19:01] VITALS: BP 140/84
[2019-07-29] MEDS ORDERED: HYDROcodone/APAP 5/325 TABLET PO ONE (19:30)
[2019-07-29] MEDS ORDERED: HYDROcodone/APAP 5/325 TABLET ONE (19:34)
[2019-07-29 20:07] LABS: BASOPHILS # (AUTO) 0.05 x10^3/uL (0-0.1); BASOPHILS % (AUTO) 1 % (0-1); EOSINOPHILS # (AUTO) 0.13 x10^3/uL (0-0.4); EOSINOPHILS % (AUTO) 2 % (1-7); LYMPHOCYTES # (AUTO) 1.84 x10^3/uL (1-3.4); LYMPHOCYTES % (AUTO) 25 % (22-44); MD NO; MEAN CORPUSCULAR HGB CONC 32.7 g/dL (32.4-35.8); MEAN CORPUSCULAR VOLUME 85.7 fL (80-100); MEAN PLATELET VOLUME 8.5 fL (7.4-10.4); MONOCYTES # (AUTO) 0.42 x10^3/uL (0.2-0.8); MONOCYTES % (AUTO) 6 % (2-9); NEUTROPHILS # (AUTO) 4.91 x10^3/uL (1.8-6.8); NEUTROPHILS % (AUTO) 67 % (42-75); PLATELET COUNT 344 x10^3/uL (130-400); RED BLOOD COUNT 4.53 x10^6/uL (3.82-5.3); RED CELL DISTRIBUTION WIDTH 13.5 % (9.6-15.2)
[2019-07-29 20:18] LABS: ANION GAP 5 mmol/L (5-15); CALCIUM 8.6 mg/dL (8.5-10.1); CHLORIDE 106 mmol/L (98-107); CREATININE 0.91 mg/dL (0.55-1.02)
[2019-07-29] MEDS ORDERED: MORPHINE SULFATE 4 MG/ML, 1ML ONE (20:51)
[2019-07-29] MEDS ORDERED: MORPHINE SULFATE 4 MG/ML, 1ML IVPush ONE (21:00)
== END 2019-07-29 21:02 | disposition home or self-care (01) ==
LOC: ED 19:35
DX: S80.211A Abrasion, right knee, initial encounter (principal); I10 Essential (primary) hypertension; J45.909 Unspecified asthma, uncomplicated; M10.9 Gout, unspecified; Z90.710 Acquired absence of both cervix and uterus; Z87.891 Personal history of nicotine dependence; Z88.0 Allergy status to penicillin; Z88.8 Allergy status to other drugs, medicaments and biological substances; W01.0XXA Fall on same level from slipping, tripping and stumbling without subsequent striking against object, initial encounter; Y93.89 Activity, other specified; Y92.89 Other specified places as the place of occurrence of the external cause; Y99.8 Other external cause status
CPT/HCPCS: 36415; 73564; 80048; 82040; 85025; 96374; 99284; J2270

== ENCOUNTER 2019-08-13 19:25 | Emergency (ER) | payer MEDICAID ==
[~2019-08-13] VITALS: Ht 160 cm; Wt 115.0 kg
[2019-08-13 19:37] VITALS: BP 161/97
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
[2019-08-13] MEDS ORDERED: DIAZEPAM 5 MG TABLET ONE (19:45)
[2019-08-13] MEDS ORDERED: FENTANYL PF 100 MCG/2ML ONE (19:45)
[2019-08-13] MEDS ORDERED: PREG150C PO (19:56)
[2019-08-13] MEDS ORDERED: AMIT10TA PO (19:56)
[2019-08-13] MEDS ORDERED: ERGO500017 PO (19:56)
[2019-08-13] MEDS ORDERED: ETOD300C27 PO (19:57)
--- NOTE | 2019-08-13 19:59 | NUR ---
Assist RN: Medicated patient for pain. Patient to get a CT.
[2019-08-13] MEDS ORDERED: DIAZEPAM 5 MG TABLET PO ONE (20:00)
[2019-08-13] MEDS ORDERED: FENTANYL PF 100 MCG/2ML IVPush ONE (20:00)
[2019-08-13] MEDS ORDERED: OXYcodone/APAP 5/325MG TABLET ONE (20:46)
[2019-08-13] MEDS ORDERED: OXYcodone/APAP 5/325MG TABLET PO ONE (21:00)
== END 2019-08-13 21:08 | disposition home or self-care (01) ==
LOC: ED 20:10
DX: S22.089A Unspecified fracture of T11-T12 vertebra, initial encounter for closed fracture (principal); S39.012A Strain of muscle, fascia and tendon of lower back, initial encounter; S30.0XXA Contusion of lower back and pelvis, initial encounter; I10 Essential (primary) hypertension; J45.909 Unspecified asthma, uncomplicated; E66.01 Morbid (severe) obesity due to excess calories; Z87.891 Personal history of nicotine dependence; Z68.42 Body mass index [BMI] 45.0-49.9, adult; Z86.718 Personal history of other venous thrombosis and embolism; W18.30XA Fall on same level, unspecified, initial encounter; Y93.89 Activity, other specified; Y92.89 Other specified places as the place of occurrence of the external cause; Y99.8 Other external cause status
CPT/HCPCS: 72131; 72192; 96374; 99285; J3010

== ENCOUNTER 2019-09-12 16:49 | Emergency (ER) | payer MEDICAID ==
[~2019-09-12] VITALS: Ht 160 cm; Wt 118.0 kg
[~2019-09-12 16:49] MED LIST changes: +AMIT10TA PO; +ERGO500017 PO; +ETOD300C27 PO; +PREG150C PO
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
--- NOTE | 2019-09-12 19:01 | NUR ---
PT GIVEN WARM BLANKETS FOR COMFORT. WCTM.
[2019-09-12] MEDS ORDERED: METO25TA35 PO (19:07)
[2019-09-12] MEDS ORDERED: METH500T7 PO (19:07)
[2019-09-12] MEDS ORDERED: ALBUTEROL INHALER INH (19:09)
[2019-09-12] MEDS ORDERED: MAALOX/HYOSCYAMINE/LIDOCAINE 45 ML BTL PO ONE (19:30)
[2019-09-12] MEDS ORDERED: MAALOX/HYOSCYAMINE/LIDOCAINE 45 ML BTL ONE (19:31)
--- NOTE | 2019-09-12 19:38 | NUR ---
PT MEDICATED PER MAR AND GIVEN SPRITE PER REQUEST FOR PO CHALLENGE. MYRON. RN TO MONITOR PT.
--- NOTE | 2019-09-12 20:09 | NUR ---
LATE ENTRY: PT TO RADIOLGY VIA JOHN, STATES THROAT STILL FEELS UNCOMFORTABLE. NO VOMITTING OR COUGHING AFTER PO CHALLENGE. PT NAD, P/W/D.
--- NOTE | 2019-09-12 21:18 | NUR ---
PT RESTING IN [place], NAD, NO CHANGE IN CONDITION, GIVEN ADDITIONAL SPRITE FOR COMFORT. WCTM. PT UP FOR RECHECK.
[2019-09-12 22:17] VITALS: BP 158/96
--- NOTE | 2019-09-12 22:18 | NUR ---
Patient given discharge instructions and they have confirmed that they understand the instructions. Patient ambulatory with steady gait. DENIES ADDITIONAL QUESTIONS OR NEEDS AT THIS TIME. NAD, SKIN COLOR WNL, WARM AND DRY, VSS. NO PT BELONGINGS LEFT IN ROOM AT DE.
== END 2019-09-12 22:19 | disposition home or self-care (01) ==
LOC: ED 21:00
DX: T18.128A Food in esophagus causing other injury, initial encounter (principal); R09.89 Other specified symptoms and signs involving the circulatory and respiratory systems; R07.9 Chest pain, unspecified; I10 Essential (primary) hypertension; E66.01 Morbid (severe) obesity due to excess calories; M79.7 Fibromyalgia; J45.909 Unspecified asthma, uncomplicated; M10.9 Gout, unspecified; Z86.718 Personal history of other venous thrombosis and embolism; Z90.710 Acquired absence of both cervix and uterus; Z98.51 Tubal ligation status; X58.XXXA Exposure to other specified factors, initial encounter; Y93.89 Activity, other specified; Y92.89 Other specified places as the place of occurrence of the external cause; Y99.8 Other external cause status
CPT/HCPCS: 74220; 99285

== ENCOUNTER 2019-10-15 17:02 | Emergency (ER) | payer MEDICAID ==
[~2019-10-15] VITALS: Ht 160 cm; Wt 116.0 kg
[~2019-10-15 17:02] MED LIST changes: +ALBUTEROL INHALER INH; +METH500T7 PO
[2019-10-15] MEDS ORDERED: HYDROcodone/APAP 5/325 TABLET PO ONE (17:30)
--- NOTE | 2019-10-15 17:33 | NUR ---
PT BROUGHT BACK FROM TRIAGE WITH CHIEF COMPLAINT OF LEFT KNEE/LEG PAIN, INTERMITTENT FOR 1.5-2 MONTHS HOWEVER TODAY AFTER CAMPING FELT LIKE PAIN WAS MUCH WORSE.
[2019-10-15] MEDS ORDERED: HYDROcodone/APAP 5/325 TABLET ONE (17:40)
--- NOTE | 2019-10-15 17:42 | NUR ---
PT TO IMAGING
--- NOTE | 2019-10-15 18:14 | NUR ---
JERRY OSBORNE AT BEDSIDE FOR EVALUATION
[2019-10-15] MEDS ORDERED: KETOROLAC 30 MG/1 ML ONE (18:21)
[2019-10-15 18:23] VITALS: BP 134/83
--- NOTE | 2019-10-15 18:25 | NUR ---
MANAGER SMALL BUSINESS TO PLACE BRACE
[2019-10-15] MEDS ORDERED: KETOROLAC 30 MG/1 ML IM ONE (18:30)
--- NOTE | 2019-10-15 18:57 | NUR ---
REPORT RECIEVED FROM EVERT FLORES. ALL SAFETY MEASURES IN PLACE
== END 2019-10-15 19:39 | disposition home or self-care (01) ==
LOC: ED 18:03
DX: S83.92XA Sprain of unspecified site of left knee, initial encounter (principal); I10 Essential (primary) hypertension; J45.909 Unspecified asthma, uncomplicated; Z86.718 Personal history of other venous thrombosis and embolism; Z87.891 Personal history of nicotine dependence; X58.XXXA Exposure to other specified factors, initial encounter; Y93.89 Activity, other specified; Y92.89 Other specified places as the place of occurrence of the external cause; Y99.8 Other external cause status
CPT/HCPCS: 29505; 73564; 96372; 99283; J1885

== ENCOUNTER 2019-10-20 19:45 | Emergency (ER) | payer MEDICAID ==
[~2019-10-20] VITALS: Ht 160 cm; Wt 121.0 kg
--- NOTE | 2019-10-20 20:45 | NUR ---
BIB [facility] FROM HOME. PT C/O WEAKNESS, DIZZY, AND "BLACKING OUT" FOR A COUPLE SECONDS. PT STATES POSSIBLE NARCOLEPSY. ELECTRICAL MANUFACTURING TECHNICIAN [facility]: PIV 20G, TYL 1000, IBU 600, BG 154. PT CONNECTED TO MONITORING. AT BEDSIDE. PT RESTING COMFORTABLY. AWAITING ORDERS.
[2019-10-20 21:44] LABS: BASOPHILS # (AUTO) 0.03 x10^3/uL (0-0.1); BASOPHILS % (AUTO) 1 % (0-1); EOSINOPHILS # (AUTO) 0.15 x10^3/uL (0-0.4); EOSINOPHILS % (AUTO) 3 % (1-7); LYMPHOCYTES # (AUTO) 1.52 x10^3/uL (1-3.4); LYMPHOCYTES % (AUTO) 25 % (22-44); MD NO; MEAN CORPUSCULAR HEMOGLOBIN 28.3 pg (27.0-34.8); MEAN CORPUSCULAR VOLUME 85.7 fL (80-100); MONOCYTES # (AUTO) 0.36 x10^3/uL (0.2-0.8); MONOCYTES % (AUTO) 6 % (2-9); NEUTROPHILS % (AUTO) 66 % (42-75); PLATELET COUNT 374 x10^3/uL (130-400); RED BLOOD COUNT 4.55 x10^6/uL (3.82-5.3); RED CELL DISTRIBUTION WIDTH 14.1 % (9.6-15.2)
[2019-10-20 21:57] LABS: ANION GAP 6 mmol/L (5-15); CALCIUM 8.4 mg/dL (8.5-10.1); CHLORIDE 106 mmol/L (98-107); CREATININE 0.81 mg/dL (0.55-1.02)
--- NOTE | 2019-10-20 21:58 | NUR ---
PT AMBULATED TO RESTROOM WITH STEADY GAIT.
[2019-10-20 22:01] VITALS: BP 147/98
[2019-10-20 22:02] LABS: TROPONIN I < 0.015 ng/mL (0.000-0.045)
--- NOTE | 2019-10-20 22:12 | NUR ---
ALL RESULTS ARE BACK AT THIS TIME. CHART UP FOR RECHECK.
--- NOTE | 2019-10-20 22:22 | NUR ---
MD AT BEDSIDE TO UPDATE PT ON POC.
[2019-10-20] MEDS ORDERED: HYDROcodone/APAP 5/325 TABLET ONE (22:26)
[2019-10-20] MEDS ORDERED: HYDROcodone/APAP 5/325 TABLET PO ONE (22:30)
--- NOTE | 2019-10-20 22:30 | NUR ---
ELECTRIC RANGE ASSEMBLER PER MAR.
== END 2019-10-20 22:43 | disposition home or self-care (01) ==
LOC: ED 21:30
DX: R53.1 Weakness (principal); R42 Dizziness and giddiness; I10 Essential (primary) hypertension; J45.909 Unspecified asthma, uncomplicated; Z98.51 Tubal ligation status; Z90.710 Acquired absence of both cervix and uterus; Z87.891 Personal history of nicotine dependence; Z86.718 Personal history of other venous thrombosis and embolism; Z85.828 Personal history of other malignant neoplasm of skin
CPT/HCPCS: 36415; 80048; 82040; 84443; 84484; 84703; 85025; 93005; 99284

== ENCOUNTER 2019-11-11 22:24 | Emergency (ER) | payer MEDICAID ==
[~2019-11-11] VITALS: Ht 160 cm; Wt 120.0 kg
[2019-11-11 22:29] VITALS: BP 129/84
--- NOTE | 2019-11-12 00:37 | NUR ---
NO ANSWER WHEN CALLED FOR ROOM, NEXT PT ROOMED
--- NOTE | 2019-11-12 01:03 | NUR ---
NO ANSWER WHEN CALLED FOR ROOM, NEXT PT ROOMED
== END 2019-11-12 02:12 | disposition left against medical advice (07) ==
LOC: ED 22:54
DX: M54.9 Dorsalgia, unspecified (principal); Z53.21 Procedure and treatment not carried out due to patient leaving prior to being seen by health care provider

== ENCOUNTER 2019-12-12 16:08 | Emergency (ER) | payer MEDICAID ==
[~2019-12-12] VITALS: Ht 160 cm; Wt 118.2 kg
[2019-12-12 16:21] VITALS: BP 141/97
[2019-12-12] MEDS ORDERED: DIAZEPAM 5 MG TABLET PO ONE (16:30)
[2019-12-12] MEDS ORDERED: DIAZEPAM 5 MG TABLET ONE (16:34)
== END 2019-12-12 17:31 | disposition home or self-care (01) ==
LOC: ED 16:56
DX: G89.29 Other chronic pain (principal); M54.5 Low back pain; I10 Essential (primary) hypertension; M10.9 Gout, unspecified; J45.909 Unspecified asthma, uncomplicated; E87.6 Hypokalemia; E66.01 Morbid (severe) obesity due to excess calories; Z98.51 Tubal ligation status; Z87.891 Personal history of nicotine dependence; Z68.42 Body mass index [BMI] 45.0-49.9, adult; Z85.828 Personal history of other malignant neoplasm of skin; Z86.718 Personal history of other venous thrombosis and embolism; Z90.710 Acquired absence of both cervix and uterus
CPT/HCPCS: 99283

== ENCOUNTER 2020-06-05 15:37 | Emergency (ER) | payer MEDICAID ==
[~2020-06-05] VITALS: Ht 160 cm; Wt 120.1 kg
[~2020-06-05 15:37] MED LIST changes: +AMLO-211 PO; -AMLO10TA8 PO; -CLIN150C14 PO; +CLIN150C15 PO; -HYDR-2440 PO; +HYDR-3569 PO; +METH-639 PO; +METH-640 PO; -METH500T7 PO; -METH750T2 PO; -MONT10TA11 PO; +MONT10TA17 PO; -OXYC-302 PO; +OXYC1TAB14 PO
[2020-06-05] MEDS ORDERED: METHOCARBAMOL 750 MG TABLET ONE (16:23)
[2020-06-05] MEDS ORDERED: ONDANSETRON ODT 4 MG ONE (16:23)
[2020-06-05] MEDS ORDERED: METHOCARBAMOL 750 MG TABLET PO ONE (16:30)
[2020-06-05] MEDS ORDERED: ONDANSETRON ODT 4 MG PO ONE (16:30)
[2020-06-05 17:15] VITALS: BP 162/84
== END 2020-06-05 17:17 | disposition home or self-care (01) ==
LOC: ED 16:10
DX: M25.552 Pain in left hip (principal); M25.551 Pain in right hip; M25.562 Pain in left knee; M25.561 Pain in right knee; M25.512 Pain in left shoulder; M25.511 Pain in right shoulder; M54.5 Low back pain; M54.6 Pain in thoracic spine; M79.7 Fibromyalgia; J45.909 Unspecified asthma, uncomplicated; I10 Essential (primary) hypertension; M10.9 Gout, unspecified; E66.01 Morbid (severe) obesity due to excess calories; F17.210 Nicotine dependence, cigarettes, uncomplicated; E87.6 Hypokalemia; Z68.42 Body mass index [BMI] 45.0-49.9, adult; Z98.51 Tubal ligation status; Z90.710 Acquired absence of both cervix and uterus; Z85.828 Personal history of other malignant neoplasm of skin; Z86.718 Personal history of other venous thrombosis and embolism
CPT/HCPCS: 99283; 99406; Q0162

== ENCOUNTER 2020-06-20 20:10 | Emergency (ER) | payer MEDICAID ==
[~2020-06-20] VITALS: Ht 160 cm; Wt 120.0 kg
[2020-06-20] MEDS ORDERED: MECLIZINE CHEWABLE 25 MG TAB PO ONE (21:00)
--- NOTE | 2020-06-20 21:00 | NUR ---
PT STATED SHE WAS TALKING WITH SON WHEN ROOM STARTED SPINNING. PT DENIED HX OF VERTIGO. PT DID HAVE NAUSEA AND WAS GIVEN 4MG ZOFRAN ODT BY JACK GRIMES TO ER. PT A/O X4 WITH UNLABORED EQUAL BREATHS
[2020-06-20] MEDS ORDERED: MECLIZINE CHEWABLE 25 MG TAB ONE (21:47)
--- NOTE | 2020-06-20 22:09 | NUR ---
PT RESTING IN BED, PT ON MONITOR WITH PT VSS. PT DENIED ANY CURRENT WANTS OR NEEDS.
[2020-06-20] MEDS ORDERED: MORPHINE SULFATE 4 MG/ML, 1ML IVPush ONE (22:30)
[2020-06-20] MEDS ORDERED: MORPHINE SULFATE 4 MG/ML, 1ML ONE (22:49)
[2020-06-20 23:52] VITALS: BP 142/98
== END 2020-06-20 23:54 | disposition home or self-care (01) ==
LOC: ED 20:36
DX: R42 Dizziness and giddiness (principal); I10 Essential (primary) hypertension; E66.01 Morbid (severe) obesity due to excess calories; M10.9 Gout, unspecified; J45.909 Unspecified asthma, uncomplicated; Z68.42 Body mass index [BMI] 45.0-49.9, adult; Z85.828 Personal history of other malignant neoplasm of skin; Z86.718 Personal history of other venous thrombosis and embolism
CPT/HCPCS: 93005; 96374; 99285; J2270

== ENCOUNTER 2020-07-05 21:55 | Emergency (ER) | payer MEDICAID ==
[~2020-07-05] VITALS: Ht 160 cm; Wt 118.2 kg
[2020-07-05 21:57] VITALS: BP 156/86
[2020-07-05] MEDS ORDERED: ALBUTEROL/IPRATROPIUM 2.5MG/0.5MG, 3 ML ONE (22:21)
[2020-07-05] MEDS: ALBUTEROL/IPRATROPIUM 2.5MG/0.5MG, 3 ML NPPB SCH ×2 (22:23→22:52)
[2020-07-05 22:42] LABS: BASOPHILS % (AUTO) 1 % (0-1); EOSINOPHILS % (AUTO) 0 % (1-7); LYMPHOCYTES % (AUTO) 16 % (22-44); MEAN CORPUSCULAR HEMOGLOBIN 29.3 pg (27.0-34.8); MEAN CORPUSCULAR HGB CONC 33.9 g/dL (32.4-35.8); MEAN PLATELET VOLUME 7.8 fL (7.4-10.4); MONOCYTES % (AUTO) 4 % (2-9); NEUTROPHILS % (AUTO) 79 % (42-75); PLATELET COUNT 390 x10^3/uL (130-400); RED BLOOD COUNT 4.64 x10^6/uL (3.82-5.3); RED CELL DISTRIBUTION WIDTH 13.8 % (9.6-15.2)
[2020-07-05 22:47] LABS: MD NO
[2020-07-05 22:51] LABS: ALBUMIN 3.1 g/dL (3.4-5.0); ANION GAP 5 mmol/L (5-15); CALCIUM 8.7 mg/dL (8.5-10.1); CHLORIDE 109 mmol/L (98-107); CREATININE 1.01 mg/dL (0.55-1.02)
== END 2020-07-05 23:34 | disposition home or self-care (01) ==
LOC: ED 22:25
DX: J45.31 Mild persistent asthma with (acute) exacerbation (principal); R06.00 Dyspnea, unspecified; I10 Essential (primary) hypertension; Z86.718 Personal history of other venous thrombosis and embolism; Z88.0 Allergy status to penicillin
CPT/HCPCS: 36415; 71045; 80048; 82040; 85025; 93005; 94640; 99285; J7512

== ENCOUNTER 2020-08-24 13:34 | Emergency (ER) | payer MEDICAID ==
[~2020-08-24] VITALS: Ht 160 cm; Wt 110.0 kg
[2020-08-24 13:59] LABS: BASOPHILS % (AUTO) 1 % (0-1); EOSINOPHILS % (AUTO) 2 % (1-7); LYMPHOCYTES % (AUTO) 23 % (22-44); MEAN CORPUSCULAR HEMOGLOBIN 28.6 pg (27.0-34.8); MEAN CORPUSCULAR HGB CONC 33.5 g/dL (32.4-35.8); MEAN PLATELET VOLUME 8.5 fL (7.4-10.4); MONOCYTES % (AUTO) 5 % (2-9); NEUTROPHILS % (AUTO) 69 % (42-75); PLATELET COUNT 343 x10^3/uL (130-400); RED BLOOD COUNT 4.69 x10^6/uL (3.82-5.3); RED CELL DISTRIBUTION WIDTH 13.4 % (9.6-15.2)
[2020-08-24] MEDS ORDERED: ONDANSETRON 2MG/ML, 2ML IVPush ONE (14:00)
[2020-08-24] MEDS ORDERED: SODIUM CHLORIDE 0.9% 1,000ML IVBOLUS ONE (14:00)
[2020-08-24] MEDS ORDERED: SODIUM CHLORIDE FLUSH 10ML SYR IVF ONE (14:00)
[2020-08-24] MEDS ORDERED: PLEASE ENTER HEIGHT AND WEIGHT MC SCH (14:00)
[2020-08-24 14:09] LABS: ALBUMIN 2.8 g/dL (3.4-5.0); ANION GAP 8 mmol/L (5-15); CALCIUM 8.4 mg/dL (8.5-10.1); CHLORIDE 108 mmol/L (98-107)
[2020-08-24 14:14] LABS: ALANINE AMINOTRANSFERASE 32 U/L (12-78); ALKALINE PHOSPHATASE 91 U/L (45-117); BILIRUBIN,TOTAL 0.4 mg/dL (0.2-1.0); CREATININE 0.78 mg/dL (0.55-1.02); TOTAL PROTEIN 6.6 g/dL (6.4-8.2)
[2020-08-24] MEDS ORDERED: MORPHINE SULFATE 4 MG/ML, 1ML ONE ×2 (14:15→15:31)
[2020-08-24] MEDS ORDERED: ONDANSETRON 2MG/ML, 2ML ONE (14:15)
[2020-08-24] MEDS: MORPHINE SULFATE 4 MG/ML, 1ML IVPush PRN ×2 (14:20→15:38)
[2020-08-24] MEDS ORDERED: POTASSIUM CHLORIDE 20 MEQ TAB.ER.PRT PO ONE (14:30)
--- NOTE | 2020-08-24 14:37 | NUR ---
PT MEDICATED PER MAR. VSS.
[2020-08-24] MEDS ORDERED: POTASSIUM CHLORIDE 20 MEQ TAB.ER.PRT ONE (14:44)
[2020-08-24 15:26] LABS: MICROSCOPIC INDICATED
[2020-08-24 15:39] VITALS: BP 131/82
== END 2020-08-24 16:05 | disposition home or self-care (01) ==
LOC: ED 13:59
DX: M47.816 Spondylosis without myelopathy or radiculopathy, lumbar region (principal); E86.0 Dehydration; E87.6 Hypokalemia; I10 Essential (primary) hypertension; J45.909 Unspecified asthma, uncomplicated; F17.200 Nicotine dependence, unspecified, uncomplicated
CPT/HCPCS: 36415; 71045; 80053; 81001; 85025; 96361; 96374; 96375; 96376; 99284; J2270; J2405; J7030

== ENCOUNTER 2020-09-16 21:16 | Emergency (ER) | payer MEDICAID ==
[~2020-09-16] VITALS: Ht 167.6 cm; Wt 113.0 kg
--- NOTE | 2020-09-16 21:16 | NUR ---
Report received from EMS, pt changed into gown and placed on monitor. Lights dimmed and grounds maintenance worker completed.
[2020-09-16] MEDS ORDERED: PROCHLORPERAZINE 5 MG/ML, 2ML IVPush ONE (21:30)
[2020-09-16] MEDS ORDERED: DIPHENHYDRAMINE 25 MG CAPSULE PO ONE (21:30)
[2020-09-16] MEDS ORDERED: KETOROLAC 30 MG/1 ML IVPush ONE (21:30)
[2020-09-16] MEDS ORDERED: LOSA25TA25 PO (21:37)
[2020-09-16] MEDS ORDERED: ZOLP-413 PO (21:37)
[2020-09-16] MEDS ORDERED: SERT100T PO (21:37)
[2020-09-16] MEDS ORDERED: CELE200C PO (21:37)
[2020-09-16] MEDS ORDERED: DIPHENHYDRAMINE 25 MG CAPSULE ONE (21:40)
[2020-09-16] MEDS ORDERED: KETOROLAC 30 MG/1 ML ONE (21:40)
[2020-09-16] MEDS ORDERED: PROCHLORPERAZINE 5 MG/ML, 2ML ONE (21:40)
--- NOTE | 2020-09-16 21:45 | NUR ---
Bedside report given to EVERT Walter and care transferred for end of shift. Pt medicated with call light in reach.
[2020-09-16 21:56] LABS: BASOPHILS % (AUTO) 1 % (0-1); EOSINOPHILS % (AUTO) 5 % (1-7); LYMPHOCYTES % (AUTO) 25 % (22-44); MEAN CORPUSCULAR HEMOGLOBIN 28.6 pg (27.0-34.8); MEAN CORPUSCULAR HGB CONC 33.5 g/dL (32.4-35.8); MEAN PLATELET VOLUME 7.9 fL (7.4-10.4); MONOCYTES % (AUTO) 7 % (2-9); NEUTROPHILS % (AUTO) 63 % (42-75); PLATELET COUNT 342 x10^3/uL (130-400)
[2020-09-16 22:02] LABS: ALBUMIN 2.7 g/dL (3.4-5.0); ANION GAP 4 mmol/L (5-15); CALCIUM 8.6 mg/dL (8.5-10.1); CHLORIDE 106 mmol/L (98-107); CREATININE 0.61 mg/dL (0.55-1.02)
--- NOTE | 2020-09-16 22:03 | NUR ---
recieved report from brice ibrahim, transfer of care.
--- NOTE | 2020-09-16 22:34 | NUR ---
Patient is resting comfortably in bed. Bed in lowest, rails engaged, call light on lap. Vital Signs within normal limits. [facility]. pt states she was rosa because she had a excrutiating headache and zoned out and woke up back at the hospital. Addendum: 09/16/20 at 2235 by [email or web address] pt states a lot of stressors have been going on lately and hx of migraines.
[2020-09-16 23:36] VITALS: BP 136/55
--- NOTE | 2020-09-16 23:40 | NUR ---
Patient/Caregiver given discharge instructions and they have confirmed that they understand the instructions. Patient ambulatory with steady gait. NAD, all questions answered appropriately, denies additional needs at this time. No personal belongings left in room after discharge. NON SLIP SOCKS GIVEN TO PT FOR SAFE DC.
== END 2020-09-16 23:41 | disposition home or self-care (01) ==
LOC: ED 21:23
DX: G43.909 Migraine, unspecified, not intractable, without status migrainosus (principal); E87.6 Hypokalemia; I10 Essential (primary) hypertension; J45.909 Unspecified asthma, uncomplicated; F17.200 Nicotine dependence, unspecified, uncomplicated; Z86.718 Personal history of other venous thrombosis and embolism
CPT/HCPCS: 36415; 80048; 82040; 84703; 85025; 96374; 96375; 99284; J0780; J1885; Q0163

== ENCOUNTER 2020-10-20 22:04 | Emergency (ER) | payer MEDICAID ==
[~2020-10-20] VITALS: Ht 160 cm; Wt 120.0 kg
[~2020-10-20 22:04] MED LIST changes: -CLIN150C15 PO; +CLIN150C17 PO; +LOSA25TA25 PO; +OXYC1TAB12 PO; -OXYC1TAB14 PO
--- NOTE | 2020-10-20 23:47 | NUR ---
PT MOVED TO ROOM
[2020-10-21 00:01] VITALS: BP 150/91
[2020-10-21] MEDS ORDERED: HYDROcodone/APAP 5/325 TABLET ONE (00:28)
[2020-10-21] MEDS ORDERED: HYDROcodone/APAP 5/325 TABLET PO ONE (00:30)
== END 2020-10-21 00:41 | disposition home or self-care (01) ==
LOC: ED 22:14
DX: R51.9 Headache, unspecified (principal)
CPT/HCPCS: 99281; 99283